=== PATIENT | female | born 1940 | race Caucasian/White ===

== ENCOUNTER 2018-08-16 01:01 | Emergency (ER) | payer MEDICARE, BC ==
[2018-08-16] MEDS ORDERED: SODIUM CHLORIDE 0.9% 500 ML 500 ML IV STA (01:33)
--- NOTE | 2018-08-16 01:48 | ED ---
General Adult HPI - General Chief complaint: Altered Mental Status Stated complaint: Mental Health Source: patient, EMS, RN notes reviewed Mode of arrival: EMS Limitations: no limitations - History of Present Illness Initial comments: 78-year-old female with a past medical history of dementia presents to the emergency department by EMS from [facility]. According to EMS [facility] staff stated patient appeared more "feisty" than normal. Patient at her baseline mentality with history of dementia. Patient is on Seroquel and was given her medication prior to arrival. Patient does state that she lost her temper but the [facility] but does not remember what this was about. Patient has no other complaints at this time including shortness of breath, chest pain, abdominal pain, nausea or vomiting, headache, or visual changes. - Related Data Previous Rx's Medication Instructions Recorded Sulfamethox-Tmp 800-160Mg [Bactrim 1 tab PO Q12HR 3 Days #6 tab 08/16/18 DS 800-160 mg] Allergies Allergy/AdvReac Type Severity Reaction Status Date / Time Unable to Assess Allergy Verified 08/16/18 01:30 Review of Systems ROS Statement: Those systems with pertinent positive or pertinent negative responses have been documented in the HPI. ROS Other: All systems not noted in ROS Statement are negative. Past Medical History Additional Past Medical History / Comment(s): dementia History of Any Multi-Drug Resistant Organisms: None Reported Past Surgical History: Unable to Obtain Past Psychological History: No Psychological Hx Reported Smoking Status: Never smoker Past Alcohol Use History: None Reported Past Drug Use History: None Reported General Exam Limitations: no limitations General appearance: alert, in no apparent distress Head exam: Present: atraumatic, normocephalic, normal inspection Eye exam: Present: normal appearance, PERRL, EOMI. Absent: scleral icterus, conjunctival injection, periorbital swelling ENT exam: Present: normal exam, mucous membranes moist Neck exam: Present: normal inspection, full ROM. Absent: tenderness, meningismus, lymphadenopathy Respiratory exam: Present: normal lung sounds bilaterally. Absent: respiratory distress, wheezes, rales, rhonchi, stridor Cardiovascular Exam: Present: regular rate, normal rhythm, normal heart sounds. Absent: systolic murmur, diastolic murmur, rubs, gallop, clicks GI/Abdominal exam: Present: soft, normal bowel sounds. Absent: distended, tenderness, guarding, rebound, rigid Neurological exam: Present: alert, CN II-XII intact. Absent: oriented X3 ( oriented to person) Psychiatric exam: Present: normal affect, normal mood Course Vital Signs 08/16/18 01:26 Temperature 97.4 F L Pulse Rate 79 Respiratory 18 Rate Blood Pressure 150/66 O2 Sat by Pulse 98 Oximetry Medical Decision Making - Medical Decision Making 78-year-old female with a past medical history of dementia presents to the emergency department, appeared more "feisty" than normal. CBC and CMP unremarkable. Urine does show evidence of infection with large leukocte esterase and 21 white cells. Urine culture. Patient put on Bactrim. Patient afebrile, well-appearing on discharge. Will be discharged back to [facility]. - Lab Data Result diagrams: 08/16/18 02:30 08/16/18 02:30 Lab Results 08/16/18 08/16/18 08/16/18 Range/Units 02:30 02:30 02:30 WBC 7.1 (3.8-10.6) k/uL RBC 4.28 (3.80-5.40) m/uL Hgb 12.5 (11.4-16.0) gm/dL Hct 38.8 (34.0-46.0) % MCV 90.6 (80.0-100.0) fL MCH 29.3 (25.0-35.0) pg MCHC 32.3 (31.0-37.0) g/dL RDW 12.6 (11.5-15.5) % Plt Count 278 (150-450) k/uL Neutrophils % 57 % Lymphocytes % 30 % Monocytes % 9 % Eosinophils % 2 % Basophils % 0 % Neutrophils # 4.0 (1.3-7.7) k/uL Lymphocytes # 2.1 (1.0-4.8) k/uL Monocytes # 0.6 (0-1.0) k/uL Eosinophils # 0.1 (0-0.7) k/uL Basophils # 0.0 (0-0.2) k/uL Sodium 140 (137-145) mmol/L Potassium 4.5 (3.5-5.1) mmol/L Chloride 106 (98-107) mmol/L Carbon Dioxide 26 (22-30) mmol/L Anion Gap 8 mmol/L BUN 25 H (7-17) mg/dL Creatinine 1.08 H (0.52-1.04) mg/dL Est GFR (CKD-EPI)AfAm 56 (>60 ml/min/1.73 sqM) Est GFR (CKD-EPI)NonAf 49 (>60 ml/min/1.73 sqM) Glucose 108 H (74-99) mg/dL Calcium 10.0 (8.4-10.2) mg/dL Total Bilirubin 0.3 (0.2-1.3) mg/dL AST 21 (14-36) U/L ALT 28 (9-52) U/L Alkaline Phosphatase 74 (38-126) U/L Total Protein 7.2 (6.3-8.2) g/dL Albumin 4.3 (3.5-5.0) g/dL Urine Color Yellow Urine Appearance Cloudy H (Clear) Urine pH 5.0 (5.0-8.0) Ur Specific [place] 1.018 (1.001-1.035) Urine Protein Negative (Negative) Urine Glucose (UA) Negative (Negative) Urine Ketones Negative (Negative) Urine Blood Small H (Negative) Urine Nitrite Negative (Negative) Urine Bilirubin Negative (Negative) Urine Urobilinogen <2.0 (<2.0) mg/dL Ur Leukocyte Esterase Large H (Negative) Urine RBC 5 (0-5) /hpf Urine WBC 21 H (0-5) /hpf Ur Squamous Epith Cells 1 (0-4) /hpf Urine Bacteria Rare H (None) /hpf Hyaline Casts 1 (0-2) /lpf Urine Mucus Rare H (None) /hpf Disposition Clinical Impression: Urinary tract infection Disposition: HOME SELF-CARE Condition: Good Instructions: Urinary Tract Infection in Women (ED) Additional Instructions: Please give antibiotic as directed. Please follow-up with primary care in 1-2 days. Prescriptions: Sulfamethox-Tmp 800-160Mg [Bactrim DS 800-160 mg] 1 tab PO Q12HR 3 Days #6 tab Is patient prescribed a controlled substance at d/c from ED?: No Referrals: Liana Young MD [STAFF PHYSICIAN] - 1-2 days Time of Disposition: 03:38
[2018-08-16 02:53] LABS: Basophils % (A) 0 %; Eosinophils # (A) 0.1 k/uL (0-0.7); Eosinophils % (A) 2 %; HCT 38.8 % (34.0-46.0); HGB 12.5 gm/dL (11.4-16.0); Lymphocytes # (A) 2.1 k/uL (1.0-4.8); Lymphocytes % (A) 30 %; MCH 29.3 pg (25.0-35.0); MCHC 32.3 g/dL (31.0-37.0); MCV 90.6 fL (80.0-100.0); Mean Platelet Volume 6.8; Monocytes # (A) 0.6 k/uL (0-1.0); Monocytes % (A) 9 %; Neutrophils % (A) 57 %; Platelet Count 278 k/uL (150-450); RBC 4.28 m/uL (3.80-5.40); RDW 12.6 % (11.5-15.5); WBC 7.1 k/uL (3.8-10.6)
[2018-08-16 03:04] LABS: Appearance,Urine Cloudy (Clear); Bacteria,Urine Rare /hpf; Bilirubin,Urine Negative (Negative); Blood,Urine Small (Negative); Color,Urine Yellow; Glucose,Urine (UA) Negative (Negative); Hyaline Casts,Urine 1 /lpf (0-2); Ketones,Urine Negative (Negative); Leukocyte Esterase,Urine Large (Negative); Mucus,Urine Rare /hpf; Nitrite,Urine Negative (Negative); Protein,Urine Negative (Negative); RBC,Urine 5 /hpf (0-5); Specific Gravity,Urine 1.018 (1.001-1.035); Squamous Epithelial Cell,Urine 1 /hpf (0-4); Urobilinogen,Urine <2.0 mg/dL (<2.0); WBC,Urine 21 /hpf (0-5)
[2018-08-16 03:05] LABS: Albumin 4.3 g/dL (3.5-5.0); Potassium 4.5 mmol/L (3.5-5.1); Total Bilirubin 0.3 mg/dL (0.2-1.3); Total Protein 7.2 g/dL (6.3-8.2)
[2018-08-16] MEDS ORDERED: LORazepam 1 MG TAB PO STA (03:33)
[2018-08-16] MEDS ORDERED: SULFAMETHOX-TMP 800-160MG 1 EACH TAB PO STA (03:36)
[2018-08-16 06:51] VITALS: BP 164/78; PULSE 56; RESP 16; TEMP 98.7
== END 2018-08-16 06:00 | disposition home or self-care (01) ==
LOC: EC 01:01
DX: N39.0 Urinary tract infection, site not specified (principal); F03.90 Unspecified dementia, unspecified severity, without behavioral disturbance, psychotic disturbance, mood disturbance, and anxiety
CPT/HCPCS: 36415; 80053; 81001; 85025; 87086; 99285

== ENCOUNTER 2018-10-02 18:36 | Observation (INO) | payer MEDICARE, BC ==
[2018-10-02 18:42] LABS: Glucose,Whole Blood 92 mg/dL (75-99)
--- NOTE | 2018-10-02 19:04 | ED ---
General Adult HPI - General Chief complaint: Syncope Stated complaint: syncope Time Seen by Provider: 10/02/18 18:46 Source: patient, EMS, RN notes reviewed Mode of arrival: EMS Limitations: altered mental status - History of Present Illness Initial comments: patient is a pleasantly demented 78-year-old female presenting to the emergency department with reported syncopal episode. Patient does not recall the episode. Patient has dementia and is a poor historian. Patient states she doesn't feel well and admits to feeling nervous. Patient denies any specific pain. No headache. No chest pain or weakness. - Related Data Previous Rx's Medication Instructions Recorded Sulfamethox-Tmp 800-160Mg [Bactrim 1 tab PO Q12HR 3 Days #6 tab 08/16/18 DS 800-160 mg] Allergies Allergy/AdvReac Type Severity Reaction Status Date / Time Unable to Assess Allergy Verified 08/16/18 01:30 Review of Systems ROS Statement: Those systems with pertinent positive or pertinent negative responses have been documented in the HPI. ROS Other: All systems not noted in ROS Statement are negative. Constitutional: Denies: fever Eyes: Denies: eye pain ENT: Denies: ear pain Respiratory: Reports: dyspnea Cardiovascular: Denies: chest pain Endocrine: Denies: fatigue Gastrointestinal: Denies: abdominal pain Genitourinary: Denies: dysuria Musculoskeletal: Denies: back pain Skin: Denies: rash Neurological: Denies: headache Psychiatric: Reports: anxiety Past Medical History Additional Past Medical History / Comment(s): dementia History of Any Multi-Drug Resistant Organisms: None Reported Past Surgical History: Unable to Obtain Past Psychological History: No Psychological Hx Reported Smoking Status: Never smoker Past Alcohol Use History: None Reported Past Drug Use History: None Reported General Exam Limitations: altered mental status General appearance: alert, anxious Head exam: Present: atraumatic, normocephalic Eye exam: Present: normal appearance, PERRL, EOMI ENT exam: Present: normal oropharynx Neck exam: Present: normal inspection. Absent: tenderness Respiratory exam: Present: normal lung sounds bilaterally Cardiovascular Exam: Present: regular rate, normal rhythm GI/Abdominal exam: Present: soft. Absent: tenderness Extremities exam: Present: normal inspection, full ROM. Absent: tenderness Neurological exam: Present: alert, altered. Absent: motor sensory deficit Expanded Neurological exam: Present: protecting the airway Patient oriented to: Present: person. Absent: place, time Cranial nerves: EOM's Intact: Normal Motor strength exam: RUE: 5, LUE: 5, RLE: 5, LLE: 5 Eye Response: (4) open spontaneously Motor Response: (6) obeys commands Verbal Response: (4) confused conversation Psychiatric exam: Present: normal affect, normal mood Skin exam: Present: normal color Course Vital Signs 10/02/18 10/02/18 18:39 18:50 Temperature 97.7 F Pulse Rate 85 80 Respiratory 24 20 Rate Blood Pressure 180/76 180/76 O2 Sat by Pulse 100 100 Oximetry EKG Findings - EKG Comments: EKG Findings:: Normal sinus rhythm at 68. ME 172. QRS 80. QT 414. QTC 440. Normal axis. Normal QRS. No acute ST change. Medical Decision Making - Medical Decision Making Patient reevaluated and resting comfortably in bed. Patient does have some nausea. Ham Rolling Machine Operator is present from care facility. She states that patient is her normal mentation. She also does admit that patient had what appeared to be a syncopal episode earlier. Ham Rolling Machine Operator updated on results and plan. Case was discussed in detail with Dr. Rogel, who will admit covering for Dr. leroy. He does request cardiology consult as well as carotid Doppler and echo. - Lab Data Result diagrams: 10/02/18 18:45 10/02/18 18:45 Lab Results 10/02/18 10/02/18 10/02/18 Range/Units 18:40 18:45 18:45 WBC 6.8 (3.8-10.6) k/uL RBC 4.60 (3.80-5.40) m/uL Hgb 13.5 (11.4-16.0) gm/dL Hct 40.7 (34.0-46.0) % MCV 88.5 (80.0-100.0) fL MCH 29.3 (25.0-35.0) pg MCHC 33.1 (31.0-37.0) g/dL RDW 12.4 (11.5-15.5) % Plt Count 267 (150-450) k/uL Neutrophils % 56 % Lymphocytes % 29 % Monocytes % 9 % Eosinophils % 2 % Basophils % 0 % Neutrophils # 3.8 (1.3-7.7) k/uL Lymphocytes # 2.0 (1.0-4.8) k/uL Monocytes # 0.6 (0-1.0) k/uL Eosinophils # 0.1 (0-0.7) k/uL Basophils # 0.0 (0-0.2) k/uL PT (9.0-12.0) sec INR (<1.2) APTT (22.0-30.0) sec D-Dimer (<0.60) mg/L FEU Sodium 140 (137-145) mmol/L Potassium 4.2 (3.5-5.1) mmol/L Chloride 106 (98-107) mmol/L Carbon Dioxide 24 (22-30) mmol/L Anion Gap 10 mmol/L BUN 19 H (7-17) mg/dL Creatinine 1.06 H (0.52-1.04) mg/dL Est GFR (CKD-EPI)AfAm 58 (>60 ml/min/1.73 sqM) Est GFR (CKD-EPI)NonAf 50 (>60 ml/min/1.73 sqM) Glucose 122 H (74-99) mg/dL POC Glucose (mg/dL) 92 (75-99) mg/dL POC Glu Windows Support Engineer ID Shasha Gallegos Calcium 10.4 H (8.4-10.2) mg/dL Magnesium 1.8 (1.6-2.3) mg/dL Total Bilirubin 0.5 (0.2-1.3) mg/dL AST 20 (14-36) U/L ALT 30 (9-52) U/L Alkaline Phosphatase 75 (38-126) U/L Troponin I (0.000-0.034) ng/mL Total Protein 7.4 (6.3-8.2) g/dL Albumin 4.3 (3.5-5.0) g/dL 10/02/18 10/02/18 Range/Units 18:45 18:45 WBC (3.8-10.6) k/uL RBC (3.80-5.40) m/uL Hgb (11.4-16.0) gm/dL Hct (34.0-46.0) % MCV (80.0-100.0) fL MCH (25.0-35.0) pg MCHC (31.0-37.0) g/dL RDW (11.5-15.5) % Plt Count (150-450) k/uL Neutrophils % % Lymphocytes % % Monocytes % % Eosinophils % % Basophils % % Neutrophils # (1.3-7.7) k/uL Lymphocytes # (1.0-4.8) k/uL Monocytes # (0-1.0) k/uL Eosinophils # (0-0.7) k/uL Basophils # (0-0.2) k/uL PT 10.0 (9.0-12.0) sec INR 0.9 (<1.2) APTT 25.7 (22.0-30.0) sec D-Dimer 0.50 (<0.60) mg/L FEU Sodium (137-145) mmol/L Potassium (3.5-5.1) mmol/L Chloride (98-107) mmol/L Carbon Dioxide (22-30) mmol/L Anion Gap mmol/L BUN (7-17) mg/dL Creatinine (0.52-1.04) mg/dL Est GFR (CKD-EPI)AfAm (>60 ml/min/1.73 sqM) Est GFR (CKD-EPI)NonAf (>60 ml/min/1.73 sqM) Glucose (74-99) mg/dL POC Glucose (mg/dL) (75-99) mg/dL POC Glu Windows Support Engineer ID Calcium (8.4-10.2) mg/dL Magnesium (1.6-2.3) mg/dL Total Bilirubin (0.2-1.3) mg/dL AST (14-36) U/L ALT (9-52) U/L Alkaline Phosphatase (38-126) U/L Troponin I <0.012 (0.000-0.034) ng/mL Total Protein (6.3-8.2) g/dL Albumin (3.5-5.0) g/dL - Radiology Data Radiology results: report reviewed (Computed tomography scan of the brain shows atrophy and chronic small vessel ischemia, no acute intercranial abnormality. Computed tomography scan the cervical spine shows spondylitic changes, no fracture.), image reviewed (Chest x-ray does not reveal acute abnormality) Disposition Clinical Impression: Syncope Disposition: ADMITTED IP TO THIS HOSP Is patient prescribed a controlled substance at d/c from ED?: No Referrals: Ynes Bledsoe MD [Primary Care Provider] - 1-2 days Decision Time: 20:13
[2018-10-02 19:12] LABS: Basophils % (A) 0 %; Eosinophils # (A) 0.1 k/uL (0-0.7); Eosinophils % (A) 2 %; HCT 40.7 % (34.0-46.0); HGB 13.5 gm/dL (11.4-16.0); Lymphocytes % (A) 29 %; MCH 29.3 pg (25.0-35.0); MCHC 33.1 g/dL (31.0-37.0); MCV 88.5 fL (80.0-100.0); Mean Platelet Volume 7.5; Monocytes # (A) 0.6 k/uL (0-1.0); Monocytes % (A) 9 %; Neutrophils # (A) 3.8 k/uL (1.3-7.7); Neutrophils % (A) 56 %; Platelet Count 267 k/uL (150-450); RDW 12.4 % (11.5-15.5); WBC 6.8 k/uL (3.8-10.6)
[2018-10-02 19:27] LABS: Albumin 4.3 g/dL (3.5-5.0); Calcium 10.4 mg/dL (8.4-10.2); Magnesium 1.8 mg/dL (1.6-2.3); Potassium 4.2 mmol/L (3.5-5.1); Total Bilirubin 0.5 mg/dL (0.2-1.3); Total Protein 7.4 g/dL (6.3-8.2)
[2018-10-02 19:31] LABS: D-Dimer 0.5 mg/L FEU (<0.60); INR 0.9 (<1.2); Partial Thromboplastin Time 25.7 sec (22.0-30.0)
[2018-10-02] MEDS ORDERED: ONDANSETRON 4 MG/2 ML VIAL IVP STA (19:34)
--- NOTE | 2018-10-02 19:51 | CT ---
EXAMINATION TYPE: CT brain lele suarez DATE OF EXAM: 10/02/2018 COMPARISON: HISTORY: AMS, syncope CT DLP: 1317.7 mGycm Automated exposure control for dose reduction was used. TECHNIQUE: CT scan of the head and cervical spine are performed without contrast. FINDINGS: There is some cerebral cortical atrophy. There is patchy hypodensity in the periventricul ar white matter. There is no mass effect nor midline shift. There is no sign of intracranial hemorrha ge. The calvarium is intact. There is degenerative disc space narrowing throughout the cervical spine with more severe spur format ion in the lower cervical spine. The posterior elements are intact. There is no evidence of cervical spine fracture. Vertebra have fairly normal alignment. The skull base is intact. IMPRESSION: Cerebral atrophy and chronic small vessel ischemia. No acute intracranial abnormality. 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 No fracture.
--- NOTE | 2018-10-02 20:12 | XR ---
EXAMINATION TYPE: XR chest 2V DATE OF EXAM: 10/02/2018 COMPARISON: NONE HISTORY: Altered mental status TECHNIQUE: Frontal and lateral views of the chest are obtained. FINDINGS: There is no heart failure nor confluent pneumonic infiltrate. Costophrenic angles are siobhan r. Thoracic aorta is atheromatous. There are chest leads. Bony thorax is intact. IMPRESSION: No active cardiopulmonary disease. Atheromatous aorta. Normal heart.
[2018-10-02] MEDS ORDERED: ONDANSETRON 4 MG/2 ML VIAL IVP PRN (20:13)
[2018-10-02] MEDS ORDERED: NALOXONE 0.4 MG/ML 1 ML VIAL IV PRN (20:13)
[2018-10-03 01:06] VITALS: BMI 22.1
[2018-10-03] MEDS: SODIUM CHLORIDE 0.9% 1,000 ML IV SCH (04:05)
[2018-10-03] MEDS ORDERED: ACETAMINOPHEN TAB 325 MG TAB PO PRN (08:10)
[2018-10-03] MEDS ORDERED: busPIRone HCl 10 MG TAB PO PRN (08:10)
[2018-10-03] MEDS: QUEtiapine 25 MG TAB PO SCH ×2 (08:44→22:39)
--- NOTE | 2018-10-03 09:05 | US ---
EXAMINATION TYPE: US carotid duplex BILAT DATE OF EXAM: 10/03/2018 COMPARISON: NONE CLINICAL HISTORY: syncope. EXAM MEASUREMENTS: RIGHT: Peak Systolic Velocity (PSV) cm/sec ----- Right CCA: 66.1 ----- Right ICA: 104.8 ----- Right ECA: 90.3 ICA/CCA ratio: 1.6 RIGHT: End Diastole cm/sec ----- Right CCA: 10.8 ----- Right ICA: 24.1 ----- Right ECA: 0.0 LEFT: Peak Systolic Velocity (PSV) cm/sec ----- Left CCA: 62.0 ----- Left ICA: 69.4 ----- Left ECA: 109.5 ICA/CCA ratio: 1.1 LEFT: End Diastole cm/sec ----- Left CCA: 9.1 ----- Left ICA: 18.8 ----- Left ECA: 0.0 VERTEBRALS (direction of flow): Right Vertebral: Antegrade Left Vertebral: Antegrade Rhythm: Arrhythmia Mild plaque, no significant velocity elevations. IMPRESSION: 1. Mild atherosclerotic plaque with no significant hemodynamic stenosis. 2. Cardiac dysrhythmia. Criteria for Assigning % of Stenosis / Diameter reduction (Estimation based on the indirect measurements of the internal carotid artery velocities (ICA PSV). 1. Normal (no stenosis)=ICA PSV < 125 cm/s: ratio < 2.0: ICA EDV<40 cm/s. 2. Less than 50% stenosis=ICA PSV < 125 cm/s: ratio < 2.0: ICA EDV<40 cm/s. 3. 50 to 69% stenosis=ICA PSV of 125 to 230 cm/s: ration 2.0 ? 4.0: ICA EDV 40-100 cm/s. 4. Greater than 70% stenosis to near occlusion= ICA PSV > 230 cm/s: ratio > 4.0: ICA EDV > 100 cm/s. 5. Near occlusion= ICA PSV velocities may be low or undetectable: variable ratio and ICA EDV. 6. Total occlusion=unable to detect flow.
[2018-10-03 09:18] LABS: Basophils % (A) 0 %; Eosinophils # (A) 0.1 k/uL (0-0.7); Eosinophils % (A) 1 %; HCT 41.7 % (34.0-46.0); HGB 13.2 gm/dL (11.4-16.0); Lymphocytes # (A) 1.6 k/uL (1.0-4.8); Lymphocytes % (A) 18 %; MCH 28.7 pg (25.0-35.0); MCHC 31.6 g/dL (31.0-37.0); MCV 90.7 fL (80.0-100.0); Mean Platelet Volume 7.2; Monocytes # (A) 0.7 k/uL (0-1.0); Monocytes % (A) 8 %; Neutrophils # (A) 6.2 k/uL (1.3-7.7); Neutrophils % (A) 70 %; Platelet Count 287 k/uL (150-450); RDW 12.6 % (11.5-15.5); WBC 8.9 k/uL (3.8-10.6)
[2018-10-03 09:23] LABS: Creatine Kinase MB 15.2 ng/mL (0.0-2.4); Troponin I 0.022 ng/mL (0.000-0.034)
--- NOTE | 2018-10-03 09:34 | P.HPIM ---
History of Present Illness H&P Date: 10/03/18 This is an 78-year-old female patient of Dr. Bledsoe. Patient currently resides at [facility]. Patient does have advanced dementia. According to ER records patient presented with reported syncopal episode. Patient is unable to recall event. Patient does have a past medical history of dementia with baseline of oriented 1. Patient denies any specific complaints. Chest x- ray completed in ER showing no active cardiopulmonary disease. Roni Pinto ordered. Normal heart. CT of head completed showing cerebral atrophy and chronic small vessel ischemia. No acute intracranial abnormality. Multilevel spondylitic change in the cervical spine no fracture. EKG completed showing normal sinus rhythm with 68. Repeat labs have been ordered. Cardiology has been consulted. 2-D echo and carotid Doppler ordered. Urinary analysis will be ordered. At this time patient expressed that she is very eager to return home. Patient's DPOA and legal.guardian on her way. Patient denies chest pain or shortness of breath. Patient denies nausea vomiting or diarrhea. Patient denies any urinary burning or frequency. Review of Systems please refer to HPI otherwise unremarkable Past Medical History Past Medical History: Dementia, Syncope Additional Past Medical History / Comment(s): dementia; A\O X1 (SELF). History of Any Multi-Drug Resistant Organisms: None Reported Past Surgical History: Unable to Obtain Past Psychological History: No Psychological Hx Reported Smoking Status: Never smoker Past Alcohol Use History: None Reported Past Drug Use History: None Reported Medications and Allergies Home Medications Medication Instructions Recorded Confirmed Type Acetaminophen Tab [Tylenol Tab] 650 mg PO Q6H PRN 10/02/18 10/02/18 History Cholecalciferol (Vitamin D3) 2,000 unit PO DAILY@0810/02/18 10/02/18 History [Vitamin D3] Coconut Oil 1000mg 1,000 mg PO DAILY@1700 10/02/18 10/02/18 History Escitalopram [Lexapro] 10 mg PO DAILY@79910/02/18 10/02/18 History Ferrous Sulfate [Feosol] 325 mg PO DAILY@79910/02/18 10/02/18 History Losartan [Cozaar] 50 mg PO DAILY@79910/02/18 10/02/18 History Melatonin 5 mg PO HS@199910/02/18 10/02/18 History QUEtiapine FUMARATE [SEROquel XR] 50 mg PO HS@2000 10/02/18 10/02/18 History busPIRone HCl [Buspar] 10 mg PO Q8H PRN 10/02/18 10/02/18 History Allergies Allergy/AdvReac Type Severity Reaction Status Date / Time No Known Allergies Allergy Unverified 10/02/18 20:48 Physical Exam Vitals: Vital Signs Temp Pulse Pulse Resp BP BP Pulse Ox 10/03/18 07:00 98.3 F 62 18 156/67 98 10/03/18 03:06 17 10/03/18 01:00 17 10/03/18 00:05 98.3 F 75 18 154/53 97 10/02/18 21:30 62 16 112/86 100 10/02/18 21:00 73 16 149/86 100 10/02/18 20:30 73 16 133/110 100 10/02/18 20:00 16 133/110 100 10/02/18 19:30 16 150/119 100 10/02/18 19:00 74 16 180/76 100 10/02/18 18:50 80 20 180/76 100 10/02/18 18:41 77 100 10/02/18 18:39 97.7 F 85 24 180/76 100 Intake and Output 10/02/18 10/03/18 10/03/18 22:59 06:59 14:59 Other: Voiding Method Toilet # Voids 1 Weight 58.5 kg Head normocephalic Neck supple Lungs clear to auscultation bilaterally no wheezing or crackles Heart regular rate and rhythm S1-S2, no rub or gallop Abdomen is soft nontender nondistended positive bowel sounds no hepatosplenomegaly Extremities no edema Neuro alert and orientated to 1 Results CBC & Chem 7: 10/03/18 08:56 10/02/18 18:45 Labs: Abnormal Lab Results - Last 24 Hours (Table) 10/02/18 10/03/18 10/03/18 Range/Units 18:45 01:37 07:38 BUN 19 H (7-17) mg/dL Creatinine 1.06 H (0.52-1.04) mg/dL Glucose 122 H (74-99) mg/dL Calcium 10.4 H (8.4-10.2) mg/dL Total Creatine Kinase 865 H (30-135) U/L CK-MB (CK-2) 8.7 H 15.2 H (0.0-2.4) ng/mL Thrombosis Risk Factor Assmnt - Choose All That Apply Any of the Below Risk Factors Present?: Yes Each Risk Factor Represents 3 Points: Age 75 years or older Other congenital or acquired thrombophilia - If yes, enter type in comment: No Thrombosis Risk Factor Assessment Total Risk Factor Score: 3 Thrombosis Risk Factor Assessment Level: Moderate Risk Assessment and Plan Assessment: 1. Syncopal episode. Chest x-ray completed showing no active cardiopulmonary disease or arteriovenous been ordered. Normal heart. Head and cervical spine CT completed showing cerebral atrophy and chronic small vessel ischemia. No acute intracranial abnormality. Multilevel spondylitic changes in the cervical spine no fracture. EKG completed showing normal sinus rhythm normal EKG. Cardiology services have been consulted. 2-D echo and carotid Doppler ordered. Will also order urinary analysis to rule out UTI 2. Dementia. Patient's baseline is alert and oriented 1. Patient currently resides at a [facility] assisted living. Patient does have legal DPOA which is her daughter Carotid Doppler and 2-D echo ordered. Cardiology consult placed. Urinary analysis ordered Time with Patient: Greater than 30 (Greater than 60% of the total time spent in counseling and coordination of care. I performed an examination of the patient and discussed their management with the Nurse Practitioner. I have reviewed the Nurse Practitioner's notes and agree with the documented findings and plan of care)
[2018-10-03 09:35] LABS: Albumin 4.3 g/dL (3.5-5.0); Calcium 10.2 mg/dL (8.4-10.2); Potassium 3.9 mmol/L (3.5-5.1); Total Bilirubin 0.7 mg/dL (0.2-1.3); Total Protein 7.5 g/dL (6.3-8.2)
[2018-10-03 09:57] LABS: Appearance,Urine Clear (Clear); Bilirubin,Urine Negative (Negative); Blood,Urine Small (Negative); Color,Urine Yellow; Glucose,Urine (UA) Negative (Negative); Ketones,Urine 1+ (Negative); Leukocyte Esterase,Urine Large (Negative); Mucus,Urine Occasional /hpf; Nitrite,Urine Negative (Negative); PH, Urine 6.5 (5.0-8.0); Protein,Urine Trace (Negative); RBC,Urine 12 /hpf (0-5); Squamous Epithelial Cell,Urine 1 /hpf (0-4); WBC,Urine 13 /hpf (0-5)
--- NOTE | 2018-10-03 10:17 | P.CRDCN ---
History of Present Illness History of present illness: This is an 78-year-old female past medical history significant for hypertension and dementia. She is confused at baseline and unable to provide information regarding the circumstances of her admission to the hospital. Information is obtained from the nursing staff and the medical record. Apparently she was brought in by EMS due to be found in her assisted living apartment by staff on the ground at home and unable to get up or verbalize what happened. She is seen and examined sitting up in bed in no acute distress. She denies any symptoms of chest pain, shortness of breath, dizziness or palpitations. She does state that she thinks she may have fallen but doesn't recall the events leading up to the fall or thereafter. She doesn't know if she hit her head or if she had positive LOC. EKG reveals sinus mechanism with no acute ST or T wave abnormalities noted. Heart rate is 68. Telemetry tracings have been unremarkable and no evidence of bradycardia or arrhythmia. Chest x-ray is negative for an acute cardiopulmonary process. With evidence of atheromatous aorta. CT brain and C-spine reveals cerebral atrophy and chronic small vessel ischemia with no acute intracranial abnormality. No fracture noted cervical spine. Bilateral carotid duplex reveals mild atherosclerotic plaque with no significant stenosis. Laboratory data reviewed, WBC 8.9, hemoglobin 13.2, platelets 287, d-dimer 0.5, sodium 141, potassium 3.9, creatinine 1.1, magnesium 1.8, cardiac enzymes negative 3. Current cardiac medications include losartan 50 mg daily. At the time of my exam: CONSTITUTIONAL: Denies fever. Denies chills. EYES: Denies blurred vision. Denies vision changes. Denies eye pain. EARS, NOSE, MOUTH & THROAT: Denies headache. Denies sore throat. Denies ear pain. CARDIOVASCULAR: Denies chest pain. Denies shortness of breath. Denies orthopnea. Denies PND. Denies palpitations. RESPIRATORY: Denies cough. GASTROINTESTINAL: Denies abdominal pain. Denies diarrhea. Denies constipation. Denies nausea. Denies vomiting. MUSCULOSKELETAL: Denies myalgias. INTEGUMENTARY: Denies pruitis. Denies rash. NEUROLOGIC: Denies numbness. Denies tingling. Denies weakness. PSYCHIATRIC: Denies anxiety. Denies depression. ENDOCRINE: Denies fatigue. Denies weight change. Denies polydipsia. Denies polyurina. GENITOURINARY: Denies burning, hematuria or urgency with micturation. HEMATOLOGIC: Denies history of anemia. Denies bleeding. Blood pressure 156/67 heart rate 62 afebrile maintaining oxygen saturation on room air GENERAL: This is a 78-year-old female in no apparent distress at the time of my examination. HEENT: Head is atraumatic, normocephalic. Pupils are equal, round. Sclerae anicteric. Conjunctivae are clear. Mucous membranes of the mouth are moist. Neck is supple. There is no jugular venous distention. No carotid bruit is heard. LUNGS: Clear to auscultation no wheezes, rales or rhonchi. No chest wall tenderness is noted on palpation or with deep breathing. HEART: Regular rate and rhythm without murmurs, rubs or gallops. S1 and S2 heard. ABDOMEN: Soft, nontender. Bowel sounds are heard. No organomegaly noted. EXTREMITIES: No evidence of peripheral edema and no calf tenderness noted. VASCULAR: Radial and dorsalis pedis pulses palpated, no evidence of clubbing. NEUROLOGIC: Patient is awake, alert to self. ASSESSMENT Possible fall with unknown LOC Hypertension Dementia PLAN An acute coronary event has been ruled out. Echocardiogram has been obtained and will be reviewed. No evidence of an acute arrhythmia or bradycardia. Increase activity and assess for dizziness, chest pain or arrhythmia. No further cardiac work-up. Thank you kindly for this consultation. Nurse Practitioner note has been reviewed, I agree with a documented findings and plan of care. Patient was seen and examined. Past Medical History Past Medical History: Dementia, Syncope Additional Past Medical History / Comment(s): dementia; A\O X1 (SELF). History of Any Multi-Drug Resistant Organisms: None Reported Past Surgical History: Unable to Obtain Past Psychological History: No Psychological Hx Reported Smoking Status: Never smoker Past Alcohol Use History: None Reported Past Drug Use History: None Reported Medications and Allergies Home Medications Medication Instructions Recorded Confirmed Type Acetaminophen Tab [Tylenol Tab] 650 mg PO Q6H PRN 10/02/18 10/02/18 History Cholecalciferol (Vitamin D3) 2,000 unit PO DAILY@0800 10/02/18 10/02/18 History [Vitamin D3] Coconut Oil 1000mg 1,000 mg PO DAILY@1700 10/02/18 10/02/18 History Escitalopram [Lexapro] 10 mg PO DAILY@0810/02/18 10/02/18 History Ferrous Sulfate [Feosol] 325 mg PO DAILY@79910/02/18 10/02/18 History Losartan [Cozaar] 50 mg PO DAILY@79910/02/18 10/02/18 History Melatonin 5 mg PO HS@199910/02/18 10/02/18 History QUEtiapine FUMARATE [SEROquel XR] 50 mg PO HS@199910/02/18 10/02/18 History busPIRone HCl [Buspar] 10 mg PO Q8H PRN 10/02/18 10/02/18 History Allergies Allergy/AdvReac Type Severity Reaction Status Date / Time No Known Allergies Allergy Unverified 10/02/18 20:48 Physical Exam Vitals: Vital Signs Temp Pulse Pulse Resp BP BP Pulse Ox 10/03/18 07:00 98.3 F 62 18 156/67 98 10/03/18 03:06 17 10/03/18 01:00 17 10/03/18 00:05 98.3 F 75 18 154/53 97 10/02/18 21:30 62 16 112/86 100 10/02/18 21:00 73 16 149/86 100 10/02/18 20:30 73 16 133/110 100 10/02/18 20:00 16 133/110 100 10/02/18 19:30 16 150/119 100 10/02/18 19:00 74 16 180/76 100 10/02/18 18:50 80 20 180/76 100 10/02/18 18:41 77 100 10/02/18 18:39 97.7 F 85 24 180/76 100 Intake and Output 10/02/18 10/03/18 10/03/18 22:59 06:59 14:59 Other: Voiding Method Toilet # Voids 1 Weight 58.5 kg Results 10/03/18 08:56 10/03/18 08:56 Cardiac Enzymes 10/02/18 10/02/18 10/02/18 Range/Units 18:45 18:45 18:45 AST 20 (14-36) U/L CK-MB (CK-2) 1.7 (0.0-2.4) ng/mL Troponin I <0.012 (0.000-0.034) ng/mL 10/03/18 10/03/18 10/03/18 Range/Units 01:37 01:37 07:38 AST (14-36) U/L CK-MB (CK-2) 8.7 H 15.2 H (0.0-2.4) ng/mL Troponin I <0.012 0.022 (0.000-0.034) ng/mL 10/03/18 Range/Units 08:56 AST 39 H (14-36) U/L CK-MB (CK-2) (0.0-2.4) ng/mL Troponin I (0.000-0.034) ng/mL Coagulation 10/02/18 Range/Units 18:45 PT 10.0 (9.0-12.0) sec APTT 25.7 (22.0-30.0) sec CBC 10/02/18 10/03/18 Range/Units 18:45 08:56 WBC 6.8 8.9 (3.8-10.6) k/uL RBC 4.60 4.60 (3.80-5.40) m/uL Hgb 13.5 13.2 (11.4-16.0) gm/dL Hct 40.7 41.7 (34.0-46.0) % Plt Count 267 287 (150-450) k/uL Comprehensive Metabolic Panel 10/02/18 10/03/18 Range/Units 18:45 08:56 Sodium 140 141 (137-145) mmol/L Potassium 4.2 3.9 (3.5-5.1) mmol/L Chloride 106 108 H (98-107) mmol/L Carbon Dioxide 24 24 (22-30) mmol/L BUN 19 H 19 H (7-17) mg/dL Creatinine 1.06 H 1.10 H (0.52-1.04) mg/dL Glucose 122 H 106 H (74-99) mg/dL Calcium 10.4 H 10.2 (8.4-10.2) mg/dL AST 20 39 H (14-36) U/L ALT 30 32 (9-52) U/L Alkaline Phosphatase 75 74 (38-126) U/L Total Protein 7.4 7.5 (6.3-8.2) g/dL Albumin 4.3 4.3 (3.5-5.0) g/dL Current Medications Generic Name Dose Route Start Last Admin Trade Name Freq PRN Reason Stop Dose Admin Acetaminophen 650 mg 10/03/18 08:10 Tylenol Tab PO Q6H PRN Pain Buspirone HCl 10 mg 10/03/18 08:10 10/03/18 08:44 Buspar PO 10 mg Q8H PRN Administration Anxiety Cholecalciferol 2,000 unit 10/04/18 08:00 Vitamin D3 PO DAILY@0800 [facility] Escitalopram Oxalate 10 mg 10/04/18 08:00 Lexapro PO DAILY@0800 [facility] Ferrous Sulfate 325 mg 10/04/18 08:00 Feosol PO DAILY@0800 [facility] Sodium Chloride 1,000 mls @ 20 mls/hr 10/02/18 20:15 10/03/18 04:05 Saline 0.9% IV Not Given .Q24H [facility] Losartan Potassium 50 mg 10/04/18 08:00 Cozaar PO DAILY@0800 [facility] Melatonin 5 mg 10/03/18 20:00 Melatonin PO HS@2000 [facility] Naloxone HCl 0.2 mg 10/02/18 20:13 Narcan IV Q2M PRN Opioid Reversal Non-Formulary Medication 1,000 mg 10/03/18 17:00 Coconut Oil 1000mg PO DAILY@1700 [facility] Ondansetron HCl 4 mg 10/02/18 20:13 Zofran IVP Q8HR PRN Nausea And Vomiting Quetiapine Fumarate 25 mg 10/03/18 09:00 10/03/18 08:44 Seroquel PO 25 mg BID [facility] Administration Intake and Output 10/02/18 10/03/18 10/03/18 22:59 06:59 14:59 Other: Voiding Method Toilet # Voids 1 Weight 58.5 kg 10/03/18 08:56 10/03/18 08:56
[2018-10-03] MEDS ORDERED: LORazepam 2 MG/ML INJ IV PRN (16:08)
[2018-10-03] MEDS ORDERED: COCONUT OIL 1000 MG PO SCH (17:00)
--- NOTE | 2018-10-03 17:03 | ECHOF ---
Referral Reason:syncope MEASUREMENTS -------- HEIGHT: 162.6 cm WEIGHT: 58.1 kg BP: 154/53 RVIDd: 2.6 cm (< 3.3) IVSd: 0.9 cm (0.6 - 1.1) LVIDd: 3.9 cm (3.9 - 5.3) LVPWd: 0.9 cm (0.6 - 1.1) IVSs: 1.3 cm LVIDs: 2.4 cm LVPWs: 1.3 cm LAESV Index (A-L): 21.76 ml/m Ao Diam: 2.8 cm (2.0 - 3.7) AV Cusp: 1.7 cm (1.5 - 2.6) LA Diam: 3.1 cm (2.7 - 3.8) MV E Tyler: 0.89 m/s MV DecT: 260 ms MV A Tyler: 1.01 m/s MV E/A Ratio: 0.88 RAP: 5.00 mmHg RVSP: 36.96 mmHg MV EF SLOPE: 32.31 mm/s (70 - 150) MV EXCURSION: 1.72 cm (> 18.000) FINDINGS -------- Sinus rhythm. This was a technically good study. The left ventricular size is normal. Left ventricular wall thickness is normal. Left ventricular systolic function is hyperdynamic with an estimated EF of >70%. The right ventricle is normal in size and function. Normal LA size by volume 22+/-6 ml/m2. The right atrium is normal in size. Aortic valve is trileaflet and is mildly thickened. There is no evidence of aortic regurgitation. There is no evidence of aortic stenosis. The mitral valve leaflets are mildly thickened. Mild mitral annular calcification present. There is trace to mild mitral regurgitation. There is mildly calcified chordae. Mild tricuspid regurgitation present. There is borderline pulmonary hypertension. The right ventr icular systolic pressure, as measured by Doppler, is 36.96mmHg. Trace/mild (physiologic) pulmonic regurgitation. The aortic root size is normal. Normal inferior vena cava with normal inspiratory collapse consistent with estimated right atrial pre ssure of 5 mmHg. There is no pericardial effusion. CONCLUSIONS -------- 1. Sinus rhythm. 2. This was a technically good study. 3. The left ventricular size is normal. 4. Left ventricular wall thickness is normal. 5. Left ventricular systolic function is hyperdynamic with an estimated EF of >70%. 6. Normal LA size by volume 22+/-6 ml/m2. 7. Aortic valve is trileaflet and is mildly thickened. 8. The mitral valve leaflets are mildly thickened. 9. Mild mitral annular calcification present. 10. There is trace to mild mitral regurgitation. 11. There is mildly calcified chordae. 12. Mild tricuspid regurgitation present. 13. There is borderline pulmonary hypertension. 14. The right ventricular systolic pressure, as measured by Doppler, is 36.96mmHg. 15. Trace/mild (physiologic) pulmonic regurgitation. 16. The aortic root size is normal. 17. There is no pericardial effusion. MANAGEMENT RETAIL INTERN: Sam Lester RDCS
[2018-10-03] MEDS ORDERED: MELATONIN 5 MG TABLET PO SCH (20:00)
[2018-10-04] MEDS: SODIUM CHLORIDE 0.9% 1,000 ML IV SCH (07:11)
[2018-10-04] MEDS ORDERED: ESCITALOPRAM 10 MG TAB PO SCH (08:00)
[2018-10-04] MEDS ORDERED: LOSARTAN 50 MG TAB PO SCH (08:00)
[2018-10-04] MEDS ORDERED: FERROUS SULFATE 325 MG TAB PO SCH (08:00)
[2018-10-04] MEDS ORDERED: CHOLECALCIFEROL 1,000 UNIT TAB PO SCH (08:00)
[2018-10-04 08:44] VITALS: RESP 18
[2018-10-04 10:12] LABS: Basophils % (A) 1 %; Eosinophils # (A) 0.2 k/uL (0-0.7); Eosinophils % (A) 3 %; HCT 39.2 % (34.0-46.0); HGB 12.5 gm/dL (11.4-16.0); Lymphocytes # (A) 1.9 k/uL (1.0-4.8); Lymphocytes % (A) 33 %; MCH 29.4 pg (25.0-35.0); MCHC 31.9 g/dL (31.0-37.0); MCV 92.4 fL (80.0-100.0); Mean Platelet Volume 6.8; Monocytes # (A) 0.6 k/uL (0-1.0); Monocytes % (A) 11 %; Neutrophils % (A) 51 %; Platelet Count 263 k/uL (150-450); RBC 4.24 m/uL (3.80-5.40); RDW 12.6 % (11.5-15.5); WBC 5.9 k/uL (3.8-10.6)
[2018-10-04 10:13] LABS: Albumin 3.7 g/dL (3.5-5.0); Calcium 9.4 mg/dL (8.4-10.2); Potassium 4.4 mmol/L (3.5-5.1); Total Bilirubin 0.5 mg/dL (0.2-1.3); Total Protein 6.6 g/dL (6.3-8.2)
[2018-10-04] MEDS: QUEtiapine 25 MG TAB PO SCH (10:55)
[2018-10-04 12:13] VITALS: BP 132/69; PULSE 65; TEMP 97.9
--- NOTE | 2018-10-04 13:44 | P.DS ---
Providers Date of admission: 10/02/18 20:15 Expected date of discharge: 10/04/18 Attending physician: Danyel Rogel Consults: 10/02/18 20:14 Consult Physician Urgent Consulting Provider: Cheo Swain Consult Reason/Comments: syncope Do you want consulting provider notified?: Yes Primary care physician: Ynes Covarrubias Hospital Course: Discharge diagnosis 1. Syncopal episode. Chest x-ray completed showing no active cardiopulmonary disease or arteriovenous been ordered. Normal heart. Head and cervical spine CT completed showing cerebral atrophy and chronic small vessel ischemia. No acute intracranial abnormality. Multilevel spondylitic changes in the cervical spine no fracture. EKG completed showing normal sinus rhythm normal EKG. Cardiology services have been consulted. 2-D echo and carotid Doppler ordered. Will also order urinary analysis to rule out UTI 2. Dementia. Patient's baseline is alert and oriented 1. Patient currently resides at a [facility]. Patient does have legal DPOA which is her daughter 3. Urinary tract infection. Urine culture ordered. Patient to follow-up with primary care Dr. covarrubias for further follow-urine culture. Patient will be DC'd on Ceftin antibiotic carotid Doppler completed showing mild arthrosclerotic plaque with no significant hemodynamic stenosis cardiac dysrhythmia Echo completed showing EF greater than 70% She has been cleared for discharge from cardiology standpoint Hospital course This is an 78-year-old female patient of Dr. Covarrubias. Patient currently resides at [facility]. Patient does have advanced dementia. According to ER records patient presented with reported syncopal episode. Patient is unable to recall event. Patient does have a past medical history of dementia with baseline of oriented 1. Patient denies any specific complaints. Chest x- ray completed in ER showing no active cardiopulmonary disease. Normal heart. CT of head completed showing cerebral atrophy and chronic small vessel ischemia. No acute intracranial abnormality. Multilevel spondylitic change in the cervical spine no fracture. EKG completed showing normal sinus rhythm with 68. Repeat labs have been ordered. Cardiology has been consulted. 2-D echo and carotid Doppler ordered. Urinary analysis will be ordered. At this time patient expressed that she is very eager to return home. Patient's DPOA and legal.guardian on her way. Patient denies chest pain or shortness of breath. Patient denies nausea vomiting or diarrhea. Patient denies any urinary burning or frequency. On 10/04/2018 patient remains confused which is her baseline. Patient is very eager to go home. Patient positive for urinary tract infection. Urine culture has been ordered. Patient remains afebrile. White blood cell count within normal limits. 2-D echo and carotid Doppler completed. Patient has been cleared from cardiology services. Will DC patient on Ceftin. Patient to follow -up with Dr. Covarrubias in regards to urine culture results. Will repeat CMP in 3 days for slightly elevated creatinine and bun 1 with elevated AST. At this time patient denies chest pain or shortness of breath. Patient denies nausea vomiting or diarrhea. Patient denies any urinary burning or frequency I performed an examination of the patient and discussed their management with the Nurse Practitioner. I have reviewed the Nurse Practitioner's notes and agree with the documented findings and plan of care Patient Condition at Discharge: Stable Plan - Discharge Summary Discharge Rx Participant: Yes New Discharge Prescriptions: No Action busPIRone HCl [Buspar] 10 mg PO Q8H PRN PRN Reason: Anxiety Acetaminophen Tab [Tylenol Tab] 650 mg PO Q6H PRN PRN Reason: Pain Cholecalciferol (Vitamin D3) [Vitamin D3] 2,000 unit PO DAILY@0800 QUEtiapine FUMARATE [SEROquel XR] 50 mg PO HS@1999 Melatonin 5 mg PO HS@1999 Losartan [Cozaar] 50 mg PO DAILY@0800 Ferrous Sulfate [Feosol] 325 mg PO DAILY@0800 Escitalopram [Lexapro] 10 mg PO DAILY@0800 Coconut Oil 1000mg 1,000 mg PO DAILY@1700 Discharge Medication List Acetaminophen Tab [Tylenol Tab] 650 mg PO Q6H PRN 10/02/18 [History] Cholecalciferol (Vitamin D3) [Vitamin D3] 2,000 unit PO DAILY@0800 10/02/18 [ History] Coconut Oil 1000mg 1,000 mg PO DAILY@1700 10/02/18 [History] Escitalopram [Lexapro] 10 mg PO DAILY@0800 10/02/18 [History] Ferrous Sulfate [Feosol] 325 mg PO DAILY@0800 10/02/18 [History] Losartan [Cozaar] 50 mg PO DAILY@0800 10/02/18 [History] Melatonin 5 mg PO HS@199910/02/18 [History] QUEtiapine FUMARATE [SEROquel XR] 50 mg PO HS@199910/02/18 [History] busPIRone HCl [Buspar] 10 mg PO Q8H PRN 10/02/18 [History] Follow up Appointment(s)/Referral(s): Ynes Covarrubias MD [Primary Care Provider] - 1-2 days
== END 2018-10-04 14:50 | disposition home or self-care (01) ==
LOC: EC 18:36 → 1SOBS 20:15
PROVIDERS: ADMIT Internal Medicine; ATTEND Internal Medicine
DX: R55 Syncope and collapse (principal); I10 Essential (primary) hypertension; N39.0 Urinary tract infection, site not specified; F03.90 Unspecified dementia, unspecified severity, without behavioral disturbance, psychotic disturbance, mood disturbance, and anxiety; I70.0 Atherosclerosis of aorta; Z79.899 Other long term (current) drug therapy
CPT/HCPCS: 96365; 96366; 96375 ×2; 99285; 36415; 93005; 93306; 85379; 80053 ×3; 82550; 82553 ×2; 83735; 84484 ×2; 85025 ×3; 85610; 85730; 81001; 87086; 71046; 93880; 72125; 70450; G0378 ×3; J2060; J2405; J0696 ×2

== ENCOUNTER 2018-11-08 16:56 | Emergency (ER) | payer MEDICARE, BC ==
[2018-11-08] MEDS ORDERED: SODIUM CHLORIDE 0.9% 1,000 ML IV ONE (17:28)
[2018-11-08] MEDS ORDERED: ONDANSETRON 4 MG/2 ML VIAL IVP STA (17:28)
--- NOTE | 2018-11-08 17:33 | ED ---
General Adult HPI - General Chief complaint: Psychiatric Symptoms Stated complaint: Mental health Time Seen by Provider: 11/08/18 17:03 Source: EMS, RN notes reviewed Mode of arrival: EMS Limitations: altered mental status - History of Present Illness Initial comments: 78-year-old female patient is brought to the emergency department today for "not acting right". Patient does have a history of dementia and lives in an adult foster home. Staff reports that she is not acting herself and sent her here for mental health evaluation. Upon arrival patient has been vomiting in EMS. Patient states that she "doesn't feel right" but is unable to give specifics. States that she feels alone and like she is by herself which upsets her. She denies any suicidal or homicidal ideation. She denies any current physical symptoms or concerns. Denies headache, blurred vision, double vision, chest pain, shortness of breath, constipation, diarrhea, abdominal pain, fever, or chills. Denies any hematuria, dysuria, urinary frequency, urinary urgency. - Related Data Home Medications Medication Instructions Recorded Confirmed Cholecalciferol (Vitamin D3) 2,000 unit PO DAILY@0800 10/02/18 11/08/18 [Vitamin D3] Coconut Oil 1000mg 1,000 mg PO DAILY@1700 10/02/18 11/08/18 Escitalopram [Lexapro] 10 mg PO DAILY@0810/02/18 11/08/18 Ferrous Sulfate [Iron (65 MG 325 mg PO DAILY@0800 10/02/18 11/08/18 Elemental)] Losartan [Cozaar] 50 mg PO DAILY@79910/02/18 11/08/18 Melatonin 5 mg PO HS@199910/02/18 11/08/18 QUEtiapine FUMARATE [SEROquel XR] 50 mg PO HS@199910/02/18 11/08/18 Acetaminophen [Tylenol Arthritis] 1,300 mg PO Q6H PRN 11/08/18 11/08/18 Previous Rx's Medication Instructions Recorded LORazepam [Ativan] 1 mg PO BID 3 Days #6 tab 11/08/18 Allergies Allergy/AdvReac Type Severity Reaction Status Date / Time No Known Allergies Allergy Verified 11/08/18 17:24 Review of Systems ROS Statement: Those systems with pertinent positive or pertinent negative responses have been documented in the HPI. ROS Other: All systems not noted in ROS Statement are negative. Past Medical History Past Medical History: Dementia, Syncope Additional Past Medical History / Comment(s): dementia; A\\O X1 (SELF). History of Any Multi-Drug Resistant Organisms: None Reported Past Surgical History: Unable to Obtain Past Psychological History: No Psychological Hx Reported Smoking Status: Never smoker Past Alcohol Use History: None Reported Past Drug Use History: None Reported General Exam Limitations: altered mental status General appearance: alert, in no apparent distress, other (Physical well- developed, well-nourished elderly female patient in no acute distress. Vital signs upon presentation are temperature 97.9F, pulse 72, respirations 18, blood pressure 219/94, pulse ox 97% on room air.) Eye exam: Present: normal appearance, PERRL, EOMI. Absent: scleral icterus, conjunctival injection, periorbital swelling ENT exam: Present: normal exam, normal oropharynx, mucous membranes moist Respiratory exam: Present: normal lung sounds bilaterally. Absent: respiratory distress, wheezes, rales, rhonchi, stridor Cardiovascular Exam: Present: regular rate, normal rhythm, normal heart sounds. Absent: systolic murmur, diastolic murmur, rubs, gallop, clicks GI/Abdominal exam: Present: soft, normal bowel sounds. Absent: distended, tenderness, guarding, rebound, rigid Neurological exam: Present: alert, oriented X3, CN II-XII intact Psychiatric exam: Present: normal affect, normal mood Skin exam: Present: warm, dry, intact, normal color. Absent: rash Course Vital Signs 11/08/18 11/08/18 17:00 18:45 Temperature 97.9 F Pulse Rate 72 75 Respiratory 18 18 Rate Blood Pressure 219/94 171/66 O2 Sat by Pulse 97 Oximetry Medical Decision Making - Medical Decision Making 78-year-old female patient presents the emergency department today for evaluation of "not acting right". Patient does have a history of dementia and is at baseline oriented 1. Staff reports that she is not acting like herself. Patient reports she is sad and feels lonely. She denies any current physical symptoms or concerns. Labs reviewed and showed mild dehydration, we did provide IV fluids. Urinalysis shows no evidence of infection. Patient was seen and evaluated by emergency psychiatric services. She is alert, following commands, and does have general reasoning. She does not meet admission criteria for the mental health unit. She'll be discharged back to the adult foster care with prescription for Ativan for anxiety. They're instructed to follow-up with the doctor for recheck on Sunday. Return parameters discussed in detail. They verbalize understanding and agree with this plan. - Lab Data Result diagrams: 11/08/18 18:15 11/08/18 18:15 Lab Results 11/08/18 11/08/18 11/08/18 Range/Units 18:15 18:15 18:15 WBC 6.6 (3.8-10.6) k/uL RBC 4.32 (3.80-5.40) m/uL Hgb 12.3 (11.4-16.0) gm/dL Hct 37.8 (34.0-46.0) % MCV 87.6 (80.0-100.0) fL MCH 28.5 (25.0-35.0) pg MCHC 32.6 (31.0-37.0) g/dL RDW 13.0 (11.5-15.5) % Plt Count 282 (150-450) k/uL Neutrophils % 72 % Lymphocytes % 17 % Monocytes % 8 % Eosinophils % 1 % Basophils % 0 % Neutrophils # 4.8 (1.3-7.7) k/uL Lymphocytes # 1.1 (1.0-4.8) k/uL Monocytes # 0.5 (0-1.0) k/uL Eosinophils # 0.0 (0-0.7) k/uL Basophils # 0.0 (0-0.2) k/uL Sodium 139 (137-145) mmol/L Potassium 4.0 (3.5-5.1) mmol/L Chloride 106 (98-107) mmol/L Carbon Dioxide 23 (22-30) mmol/L Anion Gap 10 mmol/L BUN 18 H (7-17) mg/dL Creatinine 1.24 H (0.52-1.04) mg/dL Est GFR (CKD-EPI)AfAm 47 (>60 ml/min/1.73 sqM) Est GFR (CKD-EPI)NonAf 41 (>60 ml/min/1.73 sqM) Glucose 121 H (74-99) mg/dL Calcium 10.1 (8.4-10.2) mg/dL Total Bilirubin 0.6 (0.2-1.3) mg/dL AST 32 (14-36) U/L ALT 34 (9-52) U/L Alkaline Phosphatase 89 (38-126) U/L Troponin I <0.012 (0.000-0.034) ng/mL Total Protein 7.5 (6.3-8.2) g/dL Albumin 4.4 (3.5-5.0) g/dL Amylase 89 (30-110) U/L Lipase 118 (23-300) U/L Urine Color Urine Appearance (Clear) Urine pH (5.0-8.0) Ur Specific [place] (1.001-1.035) Urine Protein (Negative) Urine Glucose (UA) (Negative) Urine Ketones (Negative) Urine Blood (Negative) Urine Nitrite (Negative) Urine Bilirubin (Negative) Urine Urobilinogen (<2.0) mg/dL Ur Leukocyte Esterase (Negative) Urine Opiates Screen (NotDetected) Ur Oxycodone Screen (NotDetected) Urine Methadone Screen (NotDetected) Ur Propoxyphene Screen (NotDetected) Ur Barbiturates Screen (NotDetected) U Tricyclic Antidepress (NotDetected) Ur Phencyclidine Scrn (NotDetected) Ur Amphetamines Screen (NotDetected) U Methamphetamines Scrn (NotDetected) U Benzodiazepines Scrn (NotDetected) Urine Cocaine Screen (NotDetected) U Marijuana (THC) Screen (NotDetected) 11/08/18 Range/Units 19:20 WBC (3.8-10.6) k/uL RBC (3.80-5.40) m/uL Hgb (11.4-16.0) gm/dL Hct (34.0-46.0) % MCV (80.0-100.0) fL MCH (25.0-35.0) pg MCHC (31.0-37.0) g/dL RDW (11.5-15.5) % Plt Count (150-450) k/uL Neutrophils % % Lymphocytes % % Monocytes % % Eosinophils % % Basophils % % Neutrophils # (1.3-7.7) k/uL Lymphocytes # (1.0-4.8) k/uL Monocytes # (0-1.0) k/uL Eosinophils # (0-0.7) k/uL Basophils # (0-0.2) k/uL Sodium (137-145) mmol/L Potassium (3.5-5.1) mmol/L Chloride (98-107) mmol/L Carbon Dioxide (22-30) mmol/L Anion Gap mmol/L BUN (7-17) mg/dL Creatinine (0.52-1.04) mg/dL Est GFR (CKD-EPI)AfAm (>60 ml/min/1.73 sqM) Est GFR (CKD-EPI)NonAf (>60 ml/min/1.73 sqM) Glucose (74-99) mg/dL Calcium (8.4-10.2) mg/dL Total Bilirubin (0.2-1.3) mg/dL AST (14-36) U/L ALT (9-52) U/L Alkaline Phosphatase (38-126) U/L Troponin I (0.000-0.034) ng/mL Total Protein (6.3-8.2) g/dL Albumin (3.5-5.0) g/dL Amylase (30-110) U/L Lipase (23-300) U/L Urine Color Yellow Urine Appearance Clear (Clear) Urine pH 8.0 (5.0-8.0) Ur Specific [place] 1.020 (1.001-1.035) Urine Protein Trace H (Negative) Urine Glucose (UA) Negative (Negative) Urine Ketones 1+ H (Negative) Urine Blood Negative (Negative) Urine Nitrite Negative (Negative) Urine Bilirubin Negative (Negative) Urine Urobilinogen 2.0 (<2.0) mg/dL Ur Leukocyte Esterase Negative (Negative) Urine Opiates Screen Not Detected (NotDetected) Ur Oxycodone Screen Not Detected (NotDetected) Urine Methadone Screen Not Detected (NotDetected) Ur Propoxyphene Screen Not Detected (NotDetected) Ur Barbiturates Screen Not Detected (NotDetected) U Tricyclic Antidepress Not Detected (NotDetected) Ur Phencyclidine Scrn Not Detected (NotDetected) Ur Amphetamines Screen Not Detected (NotDetected) U Methamphetamines Scrn Not Detected (NotDetected) U Benzodiazepines Scrn Detected H (NotDetected) Urine Cocaine Screen Not Detected (NotDetected) U Marijuana (THC) Screen Not Detected (NotDetected) Disposition Clinical Impression: Agitation Disposition: HOME SELF-CARE Condition: Good Instructions (If sedation given, give patient instructions): Anxiety (ED) Additional Instructions: Follow up with the primary care physician for recheck in 1-2 days. Return to emergency department for recheck for any new, worsening, or concerning symptoms. Prescriptions: LORazepam [Ativan] 1 mg PO BID 3 Days #6 tab Is patient prescribed a controlled substance at d/c from ED?: No Referrals: Ynes Bledsoe MD [Primary Care Provider] - 1-2 days Time of Disposition: 20:30
[2018-11-08] MEDS ORDERED: LORazepam 2 MG/ML INJ IV STA ×2 (18:21→18:40)
[2018-11-08 18:36] LABS: Albumin 4.4 g/dL (3.5-5.0); Calcium 10.1 mg/dL (8.4-10.2); Total Bilirubin 0.6 mg/dL (0.2-1.3); Total Protein 7.5 g/dL (6.3-8.2)
[2018-11-08 18:40] LABS: Basophils % (A) 0 %; Eosinophils % (A) 1 %; HCT 37.8 % (34.0-46.0); HGB 12.3 gm/dL (11.4-16.0); Lymphocytes # (A) 1.1 k/uL (1.0-4.8); Lymphocytes % (A) 17 %; MCH 28.5 pg (25.0-35.0); MCHC 32.6 g/dL (31.0-37.0); MCV 87.6 fL (80.0-100.0); Mean Platelet Volume 7.7; Monocytes # (A) 0.5 k/uL (0-1.0); Monocytes % (A) 8 %; Neutrophils # (A) 4.8 k/uL (1.3-7.7); Neutrophils % (A) 72 %; Platelet Count 282 k/uL (150-450); RBC 4.32 m/uL (3.80-5.40); WBC 6.6 k/uL (3.8-10.6)
[2018-11-08 19:53] LABS: Appearance,Urine Clear (Clear); Bilirubin,Urine Negative (Negative); Blood,Urine Negative (Negative); Color,Urine Yellow; Glucose,Urine (UA) Negative (Negative); Ketones,Urine 1+ (Negative); Leukocyte Esterase,Urine Negative (Negative); Nitrite,Urine Negative (Negative); Protein,Urine Trace (Negative)
[2018-11-08 20:08] LABS: Amphetamine Screen,Urine Not Detected (NotDetected); Barbiturate Screen,Urine Not Detected (NotDetected); Benzodiazepines Screen,Urine Detected (NotDetected); Cocaine Screen,Urine Not Detected (NotDetected); Methadone Screen, Urine Not Detected (NotDetected); Opiate Screen,Urine Not Detected (NotDetected); Oxycodone Screen, Urine Not Detected (NotDetected); Phencyclidine Screen,Urine Not Detected (NotDetected); Tricyclic Antidepressant,Urine Not Detected (NotDetected); Urn Cannabinoid Scrn Not Detected (NotDetected)
[2018-11-08] MEDS ORDERED: LORazepam 1 MG TAB PO STA (20:28)
[2018-11-08 22:20] VITALS: BP 165/72; PULSE 68; RESP 16; TEMP 98
== END 2018-11-08 22:15 | disposition home or self-care (01) ==
LOC: EC 16:56
DX: R45.1 Restlessness and agitation (principal); E86.0 Dehydration; Z79.899 Other long term (current) drug therapy
CPT/HCPCS: 36415; 80053; 82150; 83690; 84484; 85025; 81003; 80306; 99284; 96374; 96375; 96361; J2060; J2405

== ENCOUNTER → 2018-11-18 | Outpatient (CLI) | payer MEDICARE, BC ==
--- NOTE | 2018-11-18 21:40 | MR ---
EXAMINATION TYPE: MR brain wo/w con DATE OF EXAM: 11/18/2018 COMPARISON: CT brain October 02, 2018 HISTORY: Visual field defect TECHNIQUE: Multiplanar, multisequence images of the brain and brainstem is performed without and with IV contras t, utilizing 6 mL intravenous Gadavist . FINDINGS: Diffusion weighted images demonstrate no evidence of a recent infarct or other diffusion ab normality. There is no worrisome extra-axial fluid collection. There is ventricular and sulcal promi nence redemonstrated. There is marked T2 hyperintensity in the deep and periventricular white matter bilaterally. Midline structures demonstrate normal morphology. The craniocervical junction appears within normal limits. Post contrast images demonstrate no abnormal enhancement. The dural venous sinuses appear pa tent. Some artifact distortion level of the globes is present. They appear within normal limits on re cent CT. Visualized paranasal sinuses are clear. IMPRESSION: No evidence of a recent infarct. Background mild to moderate diffuse cerebral atrophy and advanced chronic small vessel ischemic change redemonstrated. No suspicious enhancement is noted.
== END | disposition home or self-care (01) ==
LOC: RADMRIMAIN 19:11
PROVIDERS: ATTEND Ophthalmology
DX: G31.9 Degenerative disease of nervous system, unspecified (principal); I67.82 Cerebral ischemia; H53.461 Homonymous bilateral field defects, right side
CPT/HCPCS: 70553; A9585

== ENCOUNTER 2018-12-08 02:06 | Emergency (ER) | payer MEDICARE, BC ==
--- NOTE | 2018-12-08 02:10 | ED ---
General Adult HPI - General Stated complaint: Mental Health Time Seen by Provider: 12/08/18 02:08 - History of Present Illness Initial comments: Dang a pleasantly demented 78-year-old female is brought to the ED today via EMS for evaluation of emotional outbursts. Per EMS patient became agitated and threw some stuff, she did not hit anybody she did not strike anybody. She has a history of this kind of behavior. Caregivers at the facility sent her to the ER for further evaluation. Charito'elziabeth states she can't recall upset her but she has a very bad temper and she is aware of this. Patient denies any complaints. - Related Data Home Medications Medication Instructions Recorded Confirmed Cholecalciferol (Vitamin D3) 2,000 unit PO DAILY@79910/02/18 11/08/18 [Vitamin D3] Coconut Oil 1000mg 1,000 mg PO DAILY@1700 10/02/18 11/08/18 Escitalopram [Lexapro] 10 mg PO DAILY@79910/02/18 11/08/18 Ferrous Sulfate [Iron (65 MG 325 mg PO DAILY@79910/02/18 11/08/18 Elemental)] Losartan [Cozaar] 50 mg PO DAILY@79910/02/18 11/08/18 Melatonin 5 mg PO HS@199910/02/18 11/08/18 QUEtiapine FUMARATE [SEROquel XR] 50 mg PO HS@199910/02/18 11/08/18 Acetaminophen [Tylenol Arthritis] 1,300 mg PO Q6H PRN 11/08/18 11/08/18 Previous Rx's Medication Instructions Recorded LORazepam [Ativan] 1 mg PO BID 3 Days #6 tab 11/08/18 Allergies Allergy/AdvReac Type Severity Reaction Status Date / Time No Known Allergies Allergy Verified 11/08/18 17:24 Review of Systems ROS Statement: Those systems with pertinent positive or pertinent negative responses have been documented in the HPI. ROS Other: All systems not noted in ROS Statement are negative. Past Medical History Past Medical History: Dementia, Syncope Additional Past Medical History / Comment(s): dementia; A\O X1 (SELF). History of Any Multi-Drug Resistant Organisms: None Reported Past Surgical History: Unable to Obtain Past Psychological History: No Psychological Hx Reported Smoking Status: Never smoker Past Alcohol Use History: None Reported Past Drug Use History: None Reported General Exam - General Exam Comments Initial Comments: Physical Exam GENERAL: Patient is well-developed and well-nourished. Patient is nontoxic and well- hydrated and is in no distress. HENT: Normocephalic, Atraumatic. EYES: PERRL, EOMI PULMONARY: Unlabored respirations. No audible rales rhonchi or wheezing was noted. CARDIOVASCULAR: There is a regular rate and rhythm without any murmurs gallops or rubs. ABDOMEN: Soft and nontender with normal bowel sounds. SKIN: Skin is clear with no lesions or rashes and otherwise unremarkable. : Deferred NEUROLOGIC: Alert and oriented to self MUSCULOSKELETAL: Normal extremities with adequate strength and full range of motion. No lower extremity swelling or edema. No calf tenderness. PSYCHIATRIC: Deny suicidal or homicidal ideation. Admits to having a short temper and emotional outbursts Course Vital Signs 12/08/18 12/08/18 02:12 05:21 Temperature 98.3 F 97.7 F Pulse Rate 62 80 Respiratory 16 18 Rate Blood Pressure 143/62 133/80 O2 Sat by Pulse 98 98 Oximetry Medical Decision Making - Medical Decision Making The patient was seen and evaluated history is obtained from EMS and patient This is a pleasantly demented 78-year-old female who is known to have emotional outburst at times. Apparently she became agitated and picked up some stuff and threw it. She does not strike anybody she is not petitioned caregivers at facility sent her here for evaluation. Basic labs and urinalysis will be obtained Patient remaining calm and cooperative able to ambulate to the restroom Labs are unremarkable, patient eager for discharge home - Lab Data Result diagrams: 12/08/18 02:20 12/08/18 02:20 Lab Results 12/08/18 12/08/18 12/08/18 Range/Units 02:20 02:20 02:20 WBC 6.5 (3.8-10.6) k/uL RBC 3.99 (3.80-5.40) m/uL Hgb 11.5 (11.4-16.0) gm/dL Hct 36.7 (34.0-46.0) % MCV 92.1 (80.0-100.0) fL MCH 28.9 (25.0-35.0) pg MCHC 31.3 (31.0-37.0) g/dL RDW 13.1 (11.5-15.5) % Plt Count 280 (150-450) k/uL Neutrophils % 52 % Lymphocytes % 35 % Monocytes % 8 % Eosinophils % 1 % Basophils % 1 % Neutrophils # 3.4 (1.3-7.7) k/uL Lymphocytes # 2.3 (1.0-4.8) k/uL Monocytes # 0.6 (0-1.0) k/uL Eosinophils # 0.1 (0-0.7) k/uL Basophils # 0.0 (0-0.2) k/uL Sodium 141 (137-145) mmol/L Potassium 4.4 (3.5-5.1) mmol/L Chloride 106 (98-107) mmol/L Carbon Dioxide 28 (22-30) mmol/L Anion Gap 7 mmol/L BUN 21 H (7-17) mg/dL Creatinine 1.27 H (0.52-1.04) mg/dL Est GFR (CKD-EPI)AfAm 46 (>60 ml/min/1.73 sqM) Est GFR (CKD-EPI)NonAf 40 (>60 ml/min/1.73 sqM) Glucose 83 (74-99) mg/dL Calcium 10.0 (8.4-10.2) mg/dL Total Bilirubin 0.3 (0.2-1.3) mg/dL AST 22 (14-36) U/L ALT 24 (9-52) U/L Alkaline Phosphatase 64 (38-126) U/L Troponin I <0.012 (0.000-0.034) ng/mL Total Protein 7.1 (6.3-8.2) g/dL Albumin 4.2 (3.5-5.0) g/dL Urine Color Urine Appearance (Clear) Urine pH (5.0-8.0) Ur Specific [place] (1.001-1.035) Urine Protein (Negative) Urine Glucose (UA) (Negative) Urine Ketones (Negative) Urine Blood (Negative) Urine Nitrite (Negative) Urine Bilirubin (Negative) Urine Urobilinogen (<2.0) mg/dL Ur Leukocyte Esterase (Negative) Urine RBC (0-5) /hpf Urine WBC (0-5) /hpf Ur Squamous Epith Cells (0-4) /hpf Ur Transition Epith Cell (0-1) /hpf Urine Bacteria (None) /hpf 12/08/18 Range/Units 03:49 WBC (3.8-10.6) k/uL RBC (3.80-5.40) m/uL Hgb (11.4-16.0) gm/dL Hct (34.0-46.0) % MCV (80.0-100.0) fL MCH (25.0-35.0) pg MCHC (31.0-37.0) g/dL RDW (11.5-15.5) % Plt Count (150-450) k/uL Neutrophils % % Lymphocytes % % Monocytes % % Eosinophils % % Basophils % % Neutrophils # (1.3-7.7) k/uL Lymphocytes # (1.0-4.8) k/uL Monocytes # (0-1.0) k/uL Eosinophils # (0-0.7) k/uL Basophils # (0-0.2) k/uL Sodium (137-145) mmol/L Potassium (3.5-5.1) mmol/L Chloride (98-107) mmol/L Carbon Dioxide (22-30) mmol/L Anion Gap mmol/L BUN (7-17) mg/dL Creatinine (0.52-1.04) mg/dL Est GFR (CKD-EPI)AfAm (>60 ml/min/1.73 sqM) Est GFR (CKD-EPI)NonAf (>60 ml/min/1.73 sqM) Glucose (74-99) mg/dL Calcium (8.4-10.2) mg/dL Total Bilirubin (0.2-1.3) mg/dL AST (14-36) U/L ALT (9-52) U/L Alkaline Phosphatase (38-126) U/L Troponin I (0.000-0.034) ng/mL Total Protein (6.3-8.2) g/dL Albumin (3.5-5.0) g/dL Urine Color Light Yellow Urine Appearance Clear (Clear) Urine pH 5.5 (5.0-8.0) Ur Specific [place] 1.012 (1.001-1.035) Urine Protein Negative (Negative) Urine Glucose (UA) Negative (Negative) Urine Ketones Negative (Negative) Urine Blood Small H (Negative) Urine Nitrite Negative (Negative) Urine Bilirubin Negative (Negative) Urine Urobilinogen <2.0 (<2.0) mg/dL Ur Leukocyte Esterase Moderate H (Negative) Urine RBC 3 (0-5) /hpf Urine WBC 4 (0-5) /hpf Ur Squamous Epith Cells 1 (0-4) /hpf Ur Transition Epith Cell <1 (0-1) /hpf Urine Bacteria Rare H (None) /hpf Disposition Clinical Impression: Agitation Disposition: HOME SELF-CARE Condition: Stable Is patient prescribed a controlled substance at d/c from ED?: No Referrals: Ynes Bledsoe MD [Primary Care Provider] - 1-2 days
[2018-12-08 03:08] LABS: Basophils % (A) 1 %; Eosinophils # (A) 0.1 k/uL (0-0.7); Eosinophils % (A) 1 %; HCT 36.7 % (34.0-46.0); HGB 11.5 gm/dL (11.4-16.0); Lymphocytes # (A) 2.3 k/uL (1.0-4.8); Lymphocytes % (A) 35 %; MCH 28.9 pg (25.0-35.0); MCHC 31.3 g/dL (31.0-37.0); MCV 92.1 fL (80.0-100.0); Mean Platelet Volume 7.5; Monocytes # (A) 0.6 k/uL (0-1.0); Monocytes % (A) 8 %; Neutrophils # (A) 3.4 k/uL (1.3-7.7); Neutrophils % (A) 52 %; Platelet Count 280 k/uL (150-450); RBC 3.99 m/uL (3.80-5.40); RDW 13.1 % (11.5-15.5); WBC 6.5 k/uL (3.8-10.6)
[2018-12-08 03:19] LABS: Albumin 4.2 g/dL (3.5-5.0); Potassium 4.4 mmol/L (3.5-5.1); Total Bilirubin 0.3 mg/dL (0.2-1.3); Total Protein 7.1 g/dL (6.3-8.2)
[2018-12-08 04:12] LABS: Appearance,Urine Clear (Clear); Bacteria,Urine Rare /hpf; Bilirubin,Urine Negative (Negative); Blood,Urine Small (Negative); Color,Urine Light Yellow; Glucose,Urine (UA) Negative (Negative); Ketones,Urine Negative (Negative); Leukocyte Esterase,Urine Moderate (Negative); Nitrite,Urine Negative (Negative); PH, Urine 5.5 (5.0-8.0); Protein,Urine Negative (Negative); RBC,Urine 3 /hpf (0-5); Specific Gravity,Urine 1.012 (1.001-1.035); Squamous Epithelial Cell,Urine 1 /hpf (0-4); Transitional Epi Cells,Urine <1 /hpf (0-1); Urobilinogen,Urine <2.0 mg/dL (<2.0)
[2018-12-08 05:24] VITALS: BP 133/80; PULSE 80; RESP 18; TEMP 97.7
== END 2018-12-08 05:24 | disposition home or self-care (01) ==
LOC: EC 02:06
DX: R45.1 Restlessness and agitation (principal); R45.89 Other symptoms and signs involving emotional state; Z79.899 Other long term (current) drug therapy
CPT/HCPCS: 36415; 70450; 80053; 81001; 82075; 84484; 85025; 99285

== ENCOUNTER 2018-12-08 08:32 | Emergency (ER) | payer MEDICARE, BC ==
[2018-12-08 08:48] VITALS: RESP 18
[2018-12-08 09:05] VITALS: TEMP 98
--- NOTE | 2018-12-08 09:07 | ED ---
General Adult HPI - General Chief complaint: Psychiatric Symptoms Stated complaint: mental health Time Seen by Provider: 12/08/18 08:35 Source: patient, EMS, RN notes reviewed Mode of arrival: EMS Limitations: no limitations - History of Present Illness Initial comments: This is an 6-year-old female who is brought to the emergency department because she was acting out all night. Patient was brought in earlier this morning and was discharged home. According to the notes I read the patient was agitated at the facility because of the whole time she was here. Basic labs and urine were sent earlier. Staff states she got back to the facility and continued to yell and scream about wanting to leave and pounding on doors stating she wants to go home. Patient currently does not remember any of this. Patient has significant dementia according to staff and when asked what her age when she believes she is 19. Patient does not appear agitated now and states she does not remember yelling or screaming and she is quite embarrassed that that may have occurred earlier. Patient has not been recently ill according to staff and patient currently states she is having no pain. - Related Data Home Medications Medication Instructions Recorded Confirmed Cholecalciferol (Vitamin D3) 2,000 unit PO DAILY@0800 10/02/18 12/08/18 [Vitamin D3] Coconut Oil 1000mg 1,000 mg PO DAILY@139910/02/18 12/08/18 Escitalopram [Lexapro] 10 mg PO DAILY@0800 10/02/18 12/08/18 Ferrous Sulfate [Iron (65 MG 325 mg PO DAILY@79910/02/18 12/08/18 Elemental)] Losartan [Cozaar] 50 mg PO DAILY@79910/02/18 12/08/18 Melatonin 5 mg PO HS@199910/02/18 12/08/18 Acetaminophen [Tylenol Arthritis] 1,300 mg PO Q6H PRN 11/08/18 12/08/18 LORazepam [Ativan] 0.5 mg PO BID PRN 12/08/18 12/08/18 LORazepam [Ativan] 0.5 mg PO DAILY@1400 12/08/18 12/08/18 QUEtiapine FUMARATE [SEROquel] 25 mg PO BID@0800,199912/08/18 12/08/18 Allergies Allergy/AdvReac Type Severity Reaction Status Date / Time No Known Allergies Allergy Verified 12/08/18 09:21 Review of Systems ROS Statement: Those systems with pertinent positive or pertinent negative responses have been documented in the HPI. ROS Other: All systems not noted in ROS Statement are negative. Past Medical History Past Medical History: Dementia, Syncope Additional Past Medical History / Comment(s): dementia; A\O X1 (SELF). History of Any Multi-Drug Resistant Organisms: None Reported Past Surgical History: Unable to Obtain Past Psychological History: No Psychological Hx Reported Smoking Status: Never smoker Past Alcohol Use History: None Reported Past Drug Use History: None Reported General Exam - General Exam Comments Initial Comments: GENERAL: Patient is well-developed and well-nourished. Patient is nontoxic and well- hydrated and is in no acute distress. ENT: Neck is soft and supple. No significant lymphadenopathy is noted. Oropharynx is clear. Moist mucous membranes. Neck has full range of motion without eliciting any pain. EYES: The sclera were anicteric and conjunctiva were pink and moist. Extraocular movements were intact and pupils were equal round and reactive to light. Eyelids were unremarkable. PULMONARY: Unlabored respirations. Good breath sounds bilaterally. No audible rales rhonchi or wheezing was noted. CARDIOVASCULAR: There is a regular rate and rhythm without any murmurs gallops or rubs. ABDOMEN: Soft and nontender with normal bowel sounds. SKIN: Skin is clear with no lesions or rashes and otherwise unremarkable. NEUROLOGIC: Patient is alert and oriented 2 Cranial nerves II through XII are grossly intact. Motor and sensory are also intact. Normal speech, volume and content. Symmetrical smile. MUSCULOSKELETAL: Normal extremities with adequate strength and full range of motion. No lower extremity swelling or edema. No calf tenderness. LYMPHATICS: No significant lymphadenopathy is noted PSYCHIATRIC: According to staff patient was yelling and screaming about wanting to leave the facility. Patient had to be physically restrained by staff. Currently the patient is calm Limitations: no limitations Course Vital Signs 12/08/18 12/08/18 08:33 09:04 Temperature 98.0 F Pulse Rate 77 Respiratory 18 Rate Blood Pressure 148/75 O2 Sat by Pulse 98 Oximetry Disposition Clinical Impression: Agitation, Dementia Disposition: HOME SELF-CARE Condition: Good Instructions (If sedation given, give patient instructions): Dementia (ED) Additional Instructions: Patient should take her Seroquel nightly Is patient prescribed a controlled substance at d/c from ED?: No Referrals: Ynes Bledsoe MD [Primary Care Provider] - 1-2 days Time of Disposition: 11:11
--- NOTE | 2018-12-08 09:36 | CT ---
EXAMINATION TYPE: CT brain wo con DATE OF EXAM: 12/08/2018 COMPARISON: Previous study dated 10/02/2018 HISTORY: Mental health CT DLP: 1086.4 mGycm Automated exposure control for dose reduction was used. FINDINGS: There are generalized changes of sulcal prominence and ventriculomegaly, compatible with atrophic zoraida nge. There is diffuse periventricular white matter lucency, compatible with small vessel ischemic zoraida nge. There is vascular calcification present. There is no acute focal lesion, mass effect or midline shift identified. I do not see evidence of intracranial blood. Visualized portions of the paranasal sinuses and mastoids are clear. The bony calvarium is intact. IMPRESSION: 1. NO ACUTE INTRACRANIAL ABNORMALITY. 2. ATROPHIC CHANGE. 3. WHITE MATTER ISCHEMIC CHANGE.
[2018-12-08 12:01] VITALS: BP 158/68; PULSE 68
== END 2018-12-08 11:50 | disposition home or self-care (01) ==
LOC: EC 08:32
DX: F03.90 Unspecified dementia, unspecified severity, without behavioral disturbance, psychotic disturbance, mood disturbance, and anxiety (principal); R45.1 Restlessness and agitation; Z79.899 Other long term (current) drug therapy
CPT/HCPCS: 70450; 82075; 99285

== ENCOUNTER 2019-01-19 01:38 | Emergency (ER) | payer MEDICARE, BC ==
[2019-01-19 01:46] VITALS: RESP 18
[2019-01-19] MEDS ORDERED: DIPH,PERTUS(ACELL)TETVAC-LF 0.5 ML VIAL IM ONE (01:58)
[2019-01-19] MEDS ORDERED: TOPICAL SKIN ADHESIVE 1 EACH AMP TOPICAL ONE (01:58)
--- NOTE | 2019-01-19 02:04 | ED ---
Fall HPI - General Chief Complaint: Fall Stated Complaint: Fall Time Seen by Provider: 01/19/19 01:46 Source: EMS - History of Present Illness Initial Comments: Tata is a pleasantly demented 78 yo female who is brought to the emergency department today via EMS for evaluation of head injury after a fall. Per caregivers at the nursing facility patient was standing in her rheumatoid to walk when she lost her balance falling forward, there are hand reveals around the outside of her room and they believe she struck the left side of her forehead on a handrail. They heard her fall immediately attended to her, she had no loss of consciousness. Patient offers no complaints. They're uncertain of her tetanus vaccine status. MD Complaint: fall -: minutes(s) Fall From: standing When Fall Occurred: [address] Fall Occurred: long-term/SNF Loss of Consciousness: none Prolonged Down Time?: no Symptoms Prior to Fall: none Location: head - Related Data Home Medications Medication Instructions Recorded Confirmed Cholecalciferol (Vitamin D3) 2,000 unit PO DAILY@0800 10/02/18 12/08/18 [Vitamin D3] Coconut Oil 1000mg 1,000 mg PO DAILY@1400 10/02/18 12/08/18 Escitalopram [Lexapro] 10 mg PO DAILY@0800 10/02/18 12/08/18 Ferrous Sulfate [Iron (65 MG 325 mg PO DAILY@0810/02/18 12/08/18 Elemental)] Losartan [Cozaar] 50 mg PO DAILY@0800 10/02/18 12/08/18 Melatonin 5 mg PO HS@199910/02/18 12/08/18 Acetaminophen [Tylenol Arthritis] 1,300 mg PO Q6H PRN 11/08/18 12/08/18 LORazepam [Ativan] 0.5 mg PO BID PRN 12/08/18 12/08/18 LORazepam [Ativan] 0.5 mg PO DAILY@139912/08/18 12/08/18 QUEtiapine FUMARATE [SEROquel] 25 mg PO BID@0800,199912/08/18 12/08/18 Allergies Allergy/AdvReac Type Severity Reaction Status Date / Time No Known Allergies Allergy Verified 01/19/19 01:46 Review of Systems ROS Statement: Those systems with pertinent positive or pertinent negative responses have been documented in the HPI. Limitations: ROS unobtainable due to patients medical condition (Dementia) Past Medical History Past Medical History: Dementia, Syncope Additional Past Medical History / Comment(s): dementia; A\O X1 (SELF). History of Any Multi-Drug Resistant Organisms: None Reported Past Surgical History: Unable to Obtain Past Psychological History: No Psychological Hx Reported Smoking Status: Never smoker Past Alcohol Use History: None Reported Past Drug Use History: None Reported General Exam - General Exam Comments Initial Comments: Physical Exam GENERAL: Patient is well-developed and well-nourished. Patient is nontoxic and well- hydrated and is in no distress. HENT: Contusion to left lateral eyebrow, no active bleeding EYES: PERRL, EOMI PULMONARY: Unlabored respirations. No audible rales rhonchi or wheezing was noted. CARDIOVASCULAR: There is a regular rate and rhythm without any murmurs gallops or rubs. ABDOMEN: Soft and nontender with normal bowel sounds. SKIN: Skin is clear with no lesions or rashes and otherwise unremarkable. : Deferred NEUROLOGIC: Alert and oriented to self Able to identify that she is at a hospital Moving all extremities, able to stand and ambulate with assistance which is her baseline MUSCULOSKELETAL: Normal extremities with adequate strength and full range of motion. No lower extremity swelling or edema. No calf tenderness. PSYCHIATRIC: Normal psychiatric evaluation Limitations: altered mental status, physical limitation Course Vital Signs 01/19/19 01:42 Temperature 98.4 F Pulse Rate 68 Respiratory 18 Rate Blood Pressure 156/86 O2 Sat by Pulse 97 Oximetry Medical Decision Making - Medical Decision Making The patient was seen and evaluated, history is obtained from the patient and caregivers a long-term Patient with a fall, struck her head, no loss of consciousness EKG was obtained due to complaint of fall, EKG obtained at 1:55 AM, rate 65 rhythm is sinus tachycardia normal axis there are normal intervals, [place] 188, QRS 88, QTC is 413 there are no acute ST elevations or depressions there is no evidence of acute ischemia or infarction. CT with no acute injury Patient able to ambulate to restroom with caregiver assistance which is patient's baseline At this time caregivers comfortable with the plan for discharge home to long-term where the patient will continue to be observed Disposition Clinical Impression: Fall Disposition: HOME SELF-CARE Condition: Stable Instructions (If sedation given, give patient instructions): Fall Prevention for Older Adults (ED) Is patient prescribed a controlled substance at d/c from ED?: No Referrals: Ynes Bledsoe MD [Primary Care Provider] - 1-2 days
--- NOTE | 2019-01-19 02:45 | CT ---
EXAM: CT Head Without Intravenous Contrast CLINICAL HISTORY: ITS.REASON CT Reason: Pain TECHNIQUE: Axial computed tomography images of the head/brain without intravenous contrast. CTDI is 25 mGy and DLP is 732 mGy-cm. This CT exam was performed using one or more of the following dose reduction techniques: automated exposure control, adjustment of the mA and/or kV according to patient size, and/or use of iterative reconstruction technique. COMPARISON: No relevant prior studies available. FINDINGS: Brain: No hemorrhage, large hypodensity, or mass effect. Chronic microvascular ischemic changes. Ventricles: No hydrocephalus. Age-appropriate cerebral volume loss. Bones/joints: Unremarkable. Soft tissues: Unremarkable. Sinuses: Unremarkable. Mastoid air cells: Clear. IMPRESSION: No acute hemorrhage, hydrocephalus, or mass effect. EXAM: CT Cervical Spine Without Intravenous Contrast CLINICAL HISTORY: ITS.REASON CT Reason: Pain TECHNIQUE: Axial computed tomography images of the cervical spine without intravenous contrast. CTDI is 10 mGy and DLP is 274 mGy-cm. This CT exam was performed using one or more of the following dose reduction techniques: automated exposure control, adjustment of the mA and/or kV according to patient size, and/or use of iterative reconstruction technique. COMPARISON: No relevant prior studies available. FINDINGS: Vertebrae: No acute fracture. Discs/spinal canal/neural foramina: Multilevel degenerative disc disease, Severe from C5-C7. No high grade spinal canal stenosis. Soft tissues: Prevertebral soft tissue prominence is likely due to retropharyngeal course of the carotids. IMPRESSION: No acute fracture or subluxation.
--- NOTE | 2019-01-19 02:48 | CT ---
EXAM: CT Head Without Intravenous Contrast CT Maxillofacial Without Intravenous Contrast CLINICAL HISTORY: ITS.REASON CT Reason: Pain TECHNIQUE: Axial computed tomography images of the head/brain and face without intravenous contrast. CTDI is 10 mGy and DLP is 274 mGy-cm. This CT exam was performed using one or more of the following dose reduction techniques: automated exposure control, adjustment of the mA and/or kV according to patient size, and/or use of iterative reconstruction technique. COMPARISON: No relevant prior studies available. FINDINGS: Bones/joints: No acute fracture. Soft tissues: Unremarkable. Sinuses: Unremarkable. No acute sinusitis. Mastoid air cells: Unremarkable. No mastoid effusion. Orbits: Unremarkable. IMPRESSION: No acute findings.
[2019-01-19 03:31] VITALS: BP 169/72; PULSE 66; TEMP 98
== END 2019-01-19 03:51 | disposition home or self-care (01) ==
LOC: EC 01:38
DX: S00.12XA Contusion of left eyelid and periocular area, initial encounter (principal); Z23 Encounter for immunization; R00.0 Tachycardia, unspecified; F03.90 Unspecified dementia, unspecified severity, without behavioral disturbance, psychotic disturbance, mood disturbance, and anxiety; Z79.899 Other long term (current) drug therapy; W01.0XXA Fall on same level from slipping, tripping and stumbling without subsequent striking against object, initial encounter
CPT/HCPCS: 70450; 70486; 72125; 90471; 90715; 99284

== ENCOUNTER 2019-01-20 19:40 | Emergency (ER) | payer MEDICARE, BC ==
[2019-01-20 19:48] VITALS: RESP 18; TEMP 98
--- NOTE | 2019-01-20 21:14 | XR ---
EXAMINATION TYPE: XR chest 2V DATE OF EXAM: 01/20/2019 COMPARISON: 10/02/2018 HISTORY: Pain TECHNIQUE: Frontal and lateral views of the chest are obtained. FINDINGS: Heart and mediastinum are normal. Lungs are clear. Diaphragm is normal. Bony thorax is int act. IMPRESSION: Normal chest. Normal heart. No change.
--- NOTE | 2019-01-20 21:15 | XR ---
EXAMINATION TYPE: XR hand complete RT DATE OF EXAM: 01/20/2019 COMPARISON: NONE HISTORY: Pain TECHNIQUE: 3 views FINDINGS: There is slightly impacted transverse fracture distal radial metaphysis. Metacarpals are in tact. There is narrowing and spurring at the first carpometacarpal joint. Scaphoid appears intact. Th ere is nondisplaced fracture of the ulnar styloid process. IMPRESSION: Nondisplaced fractures of the distal radius and ulna.
--- NOTE | 2019-01-20 21:16 | XR ---
EXAMINATION TYPE: XR wrist complete RT DATE OF EXAM: 01/20/2019 COMPARISON: NONE HISTORY: Pain TECHNIQUE: 4 views FINDINGS: There is an acute transverse fracture distal radial metaphysis. There is nondisplaced fract ure ulnar styloid process. There is no dislocation. Carpal bones are intact. IMPRESSION: Acute nondisplaced fractures distal radius and ulna.
--- NOTE | 2019-01-20 21:46 | ED ---
General Adult HPI - General Chief complaint: Extremity Injury, Upper Stated complaint: R wrist injury Time Seen by Provider: 01/20/19 19:42 Source: EMS, RN notes reviewed Mode of arrival: EMS Limitations: altered mental status - History of Present Illness Initial comments: 78-year-old female presents for right wrist pain. Patient was seen here for a fall about 2 days ago but then had another fall last night. This was not witnessed that was heard. No evidence for head injury. Patient does have a history of dementia and is at baseline. Patient denies any right-sided rib pain but apparently was complaining of this at the alf. Apparently patient had a portable x-ray done of the wrist and was sent here for further imaging and evaluation. Patient has no other complaints at this time including shortness of breath, chest pain, abdominal pain, nausea or vomiting, headache, or visual changes. - Related Data Home Medications Medication Instructions Recorded Confirmed Cholecalciferol (Vitamin D3) 2,000 unit PO DAILY@0800 10/02/18 12/08/18 [Vitamin D3] Coconut Oil 1000mg 1,000 mg PO DAILY@1400 10/02/18 12/08/18 Escitalopram [Lexapro] 10 mg PO DAILY@0800 10/02/18 12/08/18 Ferrous Sulfate [Iron (65 MG 325 mg PO DAILY@0810/02/18 12/08/18 Elemental)] Losartan [Cozaar] 50 mg PO DAILY@0800 10/02/18 12/08/18 Melatonin 5 mg PO HS@199910/02/18 12/08/18 Acetaminophen [Tylenol Arthritis] 1,300 mg PO Q6H PRN 11/08/18 12/08/18 LORazepam [Ativan] 0.5 mg PO BID PRN 12/08/18 12/08/18 LORazepam [Ativan] 0.5 mg PO DAILY@1400 12/08/18 12/08/18 QUEtiapine FUMARATE [SEROquel] 25 mg PO BID@0800,199912/08/18 12/08/18 Allergies Allergy/AdvReac Type Severity Reaction Status Date / Time No Known Allergies Allergy Verified 01/20/19 19:48 Review of Systems ROS Statement: Those systems with pertinent positive or pertinent negative responses have been documented in the HPI. ROS Other: All systems not noted in ROS Statement are negative. Past Medical History Past Medical History: Dementia, Syncope Additional Past Medical History / Comment(s): dementia; A\O X1 (SELF). History of Any Multi-Drug Resistant Organisms: None Reported Past Surgical History: Unable to Obtain Past Psychological History: No Psychological Hx Reported Smoking Status: Never smoker Past Alcohol Use History: None Reported Past Drug Use History: None Reported General Exam - General Exam Comments Initial Comments: Right wrist: Patient has limited range of motion of the right wrist but is able to flex and extend somewhat. Radial pulse 2+, capillary refill less than 2 seconds. Able to move all digits in the right hand. Sensation intact. There is significant ecchymosis and mild edema noted to the right wrist. Limitations: altered mental status General appearance: alert, in no apparent distress Head exam: Present: atraumatic, normocephalic, normal inspection Eye exam: Present: normal appearance, PERRL, EOMI. Absent: scleral icterus, conjunctival injection, periorbital swelling ENT exam: Present: normal exam, mucous membranes moist Neck exam: Present: normal inspection, full ROM. Absent: tenderness, meningismus Respiratory exam: Present: normal lung sounds bilaterally, chest wall tenderness (Midnight patient has some right-sided rib tenderness but no significant ecchymosis or bruising. no step offs). Absent: respiratory distress, wheezes, rales, rhonchi, stridor Cardiovascular Exam: Present: regular rate, normal rhythm, normal heart sounds. Absent: bradycardia, tachycardia, irregular rhythm GI/Abdominal exam: Present: soft, normal bowel sounds. Absent: distended, tenderness (No tenderness in abdomen whatsoever), guarding, rebound, rigid Back exam: Absent: vertebral tenderness (No cervical thoracic or lumbar spine tenderness) Neurological exam: Present: alert, oriented X3, CN II-XII intact Psychiatric exam: Present: normal affect, normal mood Course Vital Signs 01/20/19 19:46 Temperature 98 F Pulse Rate 59 L Respiratory 18 Rate Blood Pressure 140/45 O2 Sat by Pulse 99 Oximetry Procedures - Orthopedic Splinting/Casting Injury #1 Side: right Upper Extremity Injury Location: short arm Upper Extremity Immobilizer: volar splint Additional Comments: Neurovascular status intact Medical Decision Making - Medical Decision Making 78-year-old female presents to the emergency department for a chief complaint of right wrist pain. Patient had a fall last night. No loss of consciousness or head injury. Patient was complaint some right rib pain lateral aspect which is unremarkable. Ecchymosis noted of the right wrist area. There is some edema as well. Radial pulse 2+. Neurovascular status is intact. Chest x-ray shows a normal chest. Wrist x-ray shows acute nondisplaced fractures of the distal radius and ulna. Splint was applied. Patient will follow up with orthopedics in one to 2 days. Will return here if she has any worsening symptoms. Disposition Clinical Impression: Fracture of radius and ulna, distal Disposition: HOME SELF-CARE Condition: Good Instructions (If sedation given, give patient instructions): Wrist Fracture in Adults (ED) Additional Instructions: Please give Tylenol for pain. Rest ice and elevate the right wrist. Have patient follow up with orthopedics in one to 2 days. Keep splint dry in the meantime. Return here to the emergency department if patient develops any worsening symptoms. Is patient prescribed a controlled substance at d/c from ED?: No Referrals: Ynes Bledsoe MD [Primary Care Provider] - 1-2 days Finn Chisholm MD [Medical Doctor] - 1-2 days Time of Disposition: 22:05
[2019-01-20 22:16] VITALS: BP 129/45; PULSE 62
== END 2019-01-20 22:16 | disposition home or self-care (01) ==
LOC: EC 19:40
DX: S52.501A Unspecified fracture of the lower end of right radius, initial encounter for closed fracture (principal); S52.601A Unspecified fracture of lower end of right ulna, initial encounter for closed fracture; R07.81 Pleurodynia; F03.90 Unspecified dementia, unspecified severity, without behavioral disturbance, psychotic disturbance, mood disturbance, and anxiety; Z79.899 Other long term (current) drug therapy; W19.XXXA Unspecified fall, initial encounter
CPT/HCPCS: 29125; 71046; 99283

== ENCOUNTER 2019-01-21 20:53 | Emergency (ER) | payer MEDICARE, BC ==
--- NOTE | 2019-01-21 21:35 | XR ---
EXAMINATION TYPE: XR chest 1V portable DATE OF EXAM: 01/21/2019 COMPARISON: 01/20/2019 HISTORY: Altered mental status TECHNIQUE: Single frontal view of the chest is obtained. FINDINGS: Heart and mediastinum are normal. Lungs are clear of consolidation. Costophrenic angles ar e clear. Bony thorax is intact. IMPRESSION: No active cardiopulmonary disease. No change.
[2019-01-21 22:08] LABS: Glucose,Whole Blood 103 mg/dL (75-99)
[2019-01-21 22:26] LABS: Albumin 3.8 g/dL (3.5-5.0); Calcium 9.4 mg/dL (8.4-10.2); Potassium 4.3 mmol/L (3.5-5.1); Total Bilirubin 0.4 mg/dL (0.2-1.3); Total Protein 6.5 g/dL (6.3-8.2)
[2019-01-21 22:27] LABS: Basophils % (A) 0 %; Eosinophils # (A) 0.2 k/uL (0-0.7); Eosinophils % (A) 2 %; HCT 31.5 % (34.0-46.0); Lymphocytes # (A) 1.5 k/uL (1.0-4.8); Lymphocytes % (A) 23 %; MCH 28.6 pg (25.0-35.0); MCHC 31.7 g/dL (31.0-37.0); Mean Platelet Volume 7.6; Monocytes # (A) 0.7 k/uL (0-1.0); Monocytes % (A) 10 %; Neutrophils # (A) 4.1 k/uL (1.3-7.7); Neutrophils % (A) 62 %; Platelet Count 221 k/uL (150-450); RDW 13.3 % (11.5-15.5); WBC 6.5 k/uL (3.8-10.6)
[2019-01-21 22:28] LABS: INR 0.9 (<1.2); Partial Thromboplastin Time 27.9 sec (22.0-30.0); Prothrombin Time 10.2 sec (9.0-12.0)
--- NOTE | 2019-01-21 22:45 | CT ---
EXAM: CT Head Without Intravenous Contrast CLINICAL HISTORY: ITS.REASON CT Reason: altered mental status TECHNIQUE: Axial computed tomography images of the head/brain without intravenous contrast. CTDI is 49.1 mGy and DLP is 1095 mGy-cm. This CT exam was performed using one or more of the following dose reduction techniques: automated exposure control, adjustment of the mA and/or kV according to patient size, and/or use of iterative reconstruction technique. COMPARISON: CT head 01/19/2019. MRI brain 11/18/2018. FINDINGS: Brain: Small right anterior parafalcine hyperdense apparent dural based mass measuring 5 x 6 x 6 mm (axial image 20, coronal image 17) appears unchanged dating back to 11/18/2018, most likely representing a small meningioma. Global parenchymal volume loss with extensive chronic microvascular ischemic changes. No hemorrhage. Ventricles: Unremarkable. No ventriculomegaly. Bones/joints: Unremarkable. No acute fracture. Soft tissues: Unremarkable. Sinuses: Unremarkable as visualized. No acute sinusitis. Mastoid air cells: Unremarkable as visualized. No mastoid effusion. Orbits: Bilateral lens replacement. IMPRESSION: 1. No intracranial hemorrhage or other acute intracranial abnormality. 2. Small right anterior parafalcine hyperdense apparent dural based mass measuring 5 x 6 x 6 mm (axial image 20, coronal image 17) appears unchanged dating back to 11/18/2018, most likely representing a small meningioma. 3. Global parenchymal volume loss with extensive chronic microvascular ischemic changes.
--- NOTE | 2019-01-21 23:05 | ED ---
Psych HPI - General Chief Complaint: Psychiatric Symptoms Stated Complaint: Confusion Time Seen by Provider: 01/21/19 21:12 Source: patient, EMS, Caregiver Mode of arrival: EMS Limitations: altered mental status (Underlying dementia) - History of Present Illness Initial Comments: This patient is an 78-year-old woman who is resident of a long-term [facility] she is brought here to have evaluation after she has been having outbursts at the staff there. The patient has reportedly been uncooperative with her treatment regimen and then had been threatening staff. When I interview the patient, she states she is here because she "is making trouble." But she is not able to further elaborate on that. The patient does appear to have some underlying dementia and this is noted in her medical record. Patient is oriented only to person. She has not otherwise providing any additional history. Other review of systems she is denying any complaints. She has no dyspnea, cough, pain, or any bowel or bladder related complaints. MD Complaint: other Onset/Timin -: days(s) Associated Psychiatric Symptoms: none History of same: Yes Quality: getting worse Improves With: none Worsens With: none Associated Symptoms: denies other symptoms - Related Data Home Medications Medication Instructions Recorded Confirmed Cholecalciferol (Vitamin D3) 2,000 unit PO DAILY@0800 10/02/18 01/21/19 [Vitamin D3] Coconut Oil 1000mg 1,000 mg PO DAILY@1400 10/02/18 01/21/19 Escitalopram [Lexapro] 10 mg PO DAILY@0800 10/02/18 01/21/19 Ferrous Sulfate [Iron (65 MG 325 mg PO DAILY@0800 10/02/18 01/21/19 Elemental)] Losartan [Cozaar] 50 mg PO DAILY@0800 10/02/18 01/21/19 Melatonin 5 mg PO HS@199910/02/18 01/21/19 Acetaminophen [Tylenol Arthritis] 1,300 mg PO Q6H PRN 11/08/18 01/21/19 LORazepam [Ativan] 0.5 mg PO BID PRN 12/08/18 01/21/19 LORazepam [Ativan] 0.5 mg PO BID@0800,1700 12/08/18 01/21/19 QUEtiapine FUMARATE [SEROquel] 25 mg PO BID@0800,199912/08/18 01/21/19 Naproxen 500 mg PO BID PRN 01/21/19 01/21/19 busPIRone HCl [Buspar] 10 mg PO Q8H PRN 01/21/19 01/21/19 Allergies Allergy/AdvReac Type Severity Reaction Status Date / Time No Known Allergies Allergy Verified 01/21/19 21:44 Review of Systems ROS Statement: Those systems with pertinent positive or pertinent negative responses have been documented in the HPI. ROS Other: All systems not noted in ROS Statement are negative. Limitations: ROS unobtainable due to patients medical condition (Underlying dementia) Past Medical History Past Medical History: Dementia, Syncope Additional Past Medical History / Comment(s): dementia; A\\O X1 (SELF). History of Any Multi-Drug Resistant Organisms: None Reported Past Surgical History: Unable to Obtain Past Psychological History: No Psychological Hx Reported Smoking Status: Never smoker Past Alcohol Use History: None Reported Past Drug Use History: None Reported General Exam Limitations: altered mental status General appearance: alert, in no apparent distress Head exam: Present: atraumatic, normocephalic Eye exam: Present: normal appearance, PERRL, EOMI. Absent: scleral icterus, conjunctival injection ENT exam: Present: normal oropharynx Neck exam: Present: normal inspection, full ROM. Absent: tenderness, meningismus Respiratory exam: Present: normal lung sounds bilaterally. Absent: respiratory distress, wheezes, rales, rhonchi, stridor Cardiovascular Exam: Present: regular rate, normal rhythm, normal heart sounds GI/Abdominal exam: Present: soft. Absent: distended, tenderness, guarding, rebound, mass Extremities exam: Present: tenderness (Right wrist), normal capillary refill. Absent: pedal edema, calf tenderness Neurological exam: Present: alert. Absent: oriented X3 (Rented only to person), motor sensory deficit Skin exam: Present: warm, dry, intact, normal color, other (Subacute contusion to the left orbital area. Contusion to right wrist.) Course Vital Signs 01/21/19 01/21/19 01/21/19 21:14 22:00 23:21 Temperature 98.6 F 98 F Pulse Rate 86 72 68 Respiratory 20 20 18 Rate Blood Pressure 154/60 146/65 164/59 O2 Sat by Pulse 99 99 98 Oximetry 01/22/19 00:35 Temperature 98 F Pulse Rate 68 Respiratory 18 Rate Blood Pressure 164/59 O2 Sat by Pulse 98 Oximetry Medical Decision Making - Lab Data Result diagrams: 01/21/19 22:00 01/21/19 22:00 Lab Results 01/21/19 01/21/19 01/21/19 Range/Units 22:00 22:00 22:00 WBC 6.5 (3.8-10.6) k/uL RBC 3.50 L (3.80-5.40) m/uL Hgb 10.0 L D (11.4-16.0) gm/dL Hct 31.5 L (34.0-46.0) % MCV 90.0 (80.0-100.0) fL MCH 28.6 (25.0-35.0) pg MCHC 31.7 (31.0-37.0) g/dL RDW 13.3 (11.5-15.5) % Plt Count 221 (150-450) k/uL Neutrophils % 62 % Lymphocytes % 23 % Monocytes % 10 % Eosinophils % 2 % Basophils % 0 % Neutrophils # 4.1 (1.3-7.7) k/uL Lymphocytes # 1.5 (1.0-4.8) k/uL Monocytes # 0.7 (0-1.0) k/uL Eosinophils # 0.2 (0-0.7) k/uL Basophils # 0.0 (0-0.2) k/uL PT 10.2 (9.0-12.0) sec INR 0.9 (<1.2) APTT 27.9 (22.0-30.0) sec Sodium 140 (137-145) mmol/L Potassium 4.3 (3.5-5.1) mmol/L Chloride 107 (98-107) mmol/L Carbon Dioxide 27 (22-30) mmol/L Anion Gap 6 mmol/L BUN 24 H (7-17) mg/dL Creatinine 1.15 H (0.52-1.04) mg/dL Est GFR (CKD-EPI)AfAm 52 (>60 ml/min/1.73 sqM) Est GFR (CKD-EPI)NonAf 45 (>60 ml/min/1.73 sqM) Glucose 98 (74-99) mg/dL POC Glucose (mg/dL) (75-99) mg/dL POC Glu Gis Mapping Technician ID Calcium 9.4 (8.4-10.2) mg/dL Total Bilirubin 0.4 (0.2-1.3) mg/dL AST 27 (14-36) U/L ALT 19 (9-52) U/L Alkaline Phosphatase 81 (38-126) U/L Troponin I (0.000-0.034) ng/mL Total Protein 6.5 (6.3-8.2) g/dL Albumin 3.8 (3.5-5.0) g/dL Urine Color Urine Appearance (Clear) Urine pH (5.0-8.0) Ur Specific [place] (1.001-1.035) Urine Protein (Negative) Urine Glucose (UA) (Negative) Urine Ketones (Negative) Urine Blood (Negative) Urine Nitrite (Negative) Urine Bilirubin (Negative) Urine Urobilinogen (<2.0) mg/dL Ur Leukocyte Esterase (Negative) Urine RBC (0-5) /hpf Urine WBC (0-5) /hpf Ur Squamous Epith Cells (0-4) /hpf Hyaline Casts (0-2) /lpf Urine Opiates Screen (NotDetected) Ur Oxycodone Screen (NotDetected) Urine Methadone Screen (NotDetected) Ur Propoxyphene Screen (NotDetected) Ur Barbiturates Screen (NotDetected) U Tricyclic Antidepress (NotDetected) Ur Phencyclidine Scrn (NotDetected) Ur Amphetamines Screen (NotDetected) U Methamphetamines Scrn (NotDetected) U Benzodiazepines Scrn (NotDetected) Urine Cocaine Screen (NotDetected) U Marijuana (THC) Screen (NotDetected) 01/21/19 01/21/19 01/22/19 Range/Units 22:00 22:07 00:03 WBC (3.8-10.6) k/uL RBC (3.80-5.40) m/uL Hgb (11.4-16.0) gm/dL Hct (34.0-46.0) % MCV (80.0-100.0) fL MCH (25.0-35.0) pg MCHC (31.0-37.0) g/dL RDW (11.5-15.5) % Plt Count (150-450) k/uL Neutrophils % % Lymphocytes % % Monocytes % % Eosinophils % % Basophils % % Neutrophils # (1.3-7.7) k/uL Lymphocytes # (1.0-4.8) k/uL Monocytes # (0-1.0) k/uL Eosinophils # (0-0.7) k/uL Basophils # (0-0.2) k/uL PT (9.0-12.0) sec INR (<1.2) APTT (22.0-30.0) sec Sodium (137-145) mmol/L Potassium (3.5-5.1) mmol/L Chloride (98-107) mmol/L Carbon Dioxide (22-30) mmol/L Anion Gap mmol/L BUN (7-17) mg/dL Creatinine (0.52-1.04) mg/dL Est GFR (CKD-EPI)AfAm (>60 ml/min/1.73 sqM) Est GFR (CKD-EPI)NonAf (>60 ml/min/1.73 sqM) Glucose (74-99) mg/dL POC Glucose (mg/dL) 103 H (75-99) mg/dL POC Glu Gis Mapping Technician ID Calcium (8.4-10.2) mg/dL Total Bilirubin (0.2-1.3) mg/dL AST (14-36) U/L ALT (9-52) U/L Alkaline Phosphatase (38-126) U/L Troponin I <0.012 (0.000-0.034) ng/mL Total Protein (6.3-8.2) g/dL Albumin (3.5-5.0) g/dL Urine Color Yellow Urine Appearance Clear (Clear) Urine pH 6.5 (5.0-8.0) Ur Specific [place] 1.018 (1.001-1.035) Urine Protein Negative (Negative) Urine Glucose (UA) Negative (Negative) Urine Ketones Negative (Negative) Urine Blood Trace H (Negative) Urine Nitrite Negative (Negative) Urine Bilirubin Negative (Negative) Urine Urobilinogen <2.0 (<2.0) mg/dL Ur Leukocyte Esterase Large H (Negative) Urine RBC 8 H (0-5) /hpf Urine WBC 5 (0-5) /hpf Ur Squamous Epith Cells 3 (0-4) /hpf Hyaline Casts 4 H (0-2) /lpf Urine Opiates Screen Not Detected (NotDetected) Ur Oxycodone Screen Not Detected (NotDetected) Urine Methadone Screen Not Detected (NotDetected) Ur Propoxyphene Screen Not Detected (NotDetected) Ur Barbiturates Screen Not Detected (NotDetected) U Tricyclic Antidepress Not Detected (NotDetected) Ur Phencyclidine Scrn Not Detected (NotDetected) Ur Amphetamines Screen Not Detected (NotDetected) U Methamphetamines Scrn Not Detected (NotDetected) U Benzodiazepines Scrn Detected H (NotDetected) Urine Cocaine Screen Not Detected (NotDetected) U Marijuana (THC) Screen Not Detected (NotDetected) - EKG Data -: EKG Interpreted by Hi EKG shows normal: sinus rhythm (With occasional PAC.), intervals (Normal), QRS complexes (Normal), ST-T waves (Normal) Rate: normal (866 bpm.) Interpretation: nonspecific ST-T wave changes Disposition Clinical Impression: Dementia, Agitation Disposition: HOME SELF-CARE Condition: Fair Instructions (If sedation given, give patient instructions): Dementia (ED) Is patient prescribed a controlled substance at d/c from ED?: No Referrals: Joseph Barrera MD [Primary Care Provider] - 1-2 days
[2019-01-21 23:23] VITALS: RESP 18; TEMP 98
[2019-01-22 00:53] LABS: Appearance,Urine Clear (Clear); Bilirubin,Urine Negative (Negative); Blood,Urine Trace (Negative); Color,Urine Yellow; Glucose,Urine (UA) Negative (Negative); Hyaline Casts,Urine 4 /lpf (0-2); Ketones,Urine Negative (Negative); Leukocyte Esterase,Urine Large (Negative); Nitrite,Urine Negative (Negative); PH, Urine 6.5 (5.0-8.0); Protein,Urine Negative (Negative); RBC,Urine 8 /hpf (0-5); Specific Gravity,Urine 1.018 (1.001-1.035); Squamous Epithelial Cell,Urine 3 /hpf (0-4); Urobilinogen,Urine <2.0 mg/dL (<2.0); WBC,Urine 5 /hpf (0-5)
[2019-01-22 00:59] LABS: Amphetamine Screen,Urine Not Detected (NotDetected); Barbiturate Screen,Urine Not Detected (NotDetected); Benzodiazepines Screen,Urine Detected (NotDetected); Cocaine Screen,Urine Not Detected (NotDetected); Methadone Screen, Urine Not Detected (NotDetected); Opiate Screen,Urine Not Detected (NotDetected); Oxycodone Screen, Urine Not Detected (NotDetected); Phencyclidine Screen,Urine Not Detected (NotDetected); Tricyclic Antidepressant,Urine Not Detected (NotDetected); Urn Cannabinoid Scrn Not Detected (NotDetected)
[2019-01-22] MEDS: LORazepam 1 MG TAB PO STA ×2 (02:52→03:05)
[2019-01-22] MEDS ORDERED: LORazepam 2 MG/ML INJ IV STA (02:59)
[2019-01-22] MEDS ORDERED: HALOPERIDOL LACTATE 5 MG/ML 1 ML VIAL IM STA (03:34)
[2019-01-22 04:09] VITALS: BP 143/74; PULSE 69
== END 2019-01-22 04:34 | disposition home or self-care (01) ==
LOC: EC 20:53
DX: S60.211A Contusion of right wrist, initial encounter (principal); S05.12XA Contusion of eyeball and orbital tissues, left eye, initial encounter; F03.90 Unspecified dementia, unspecified severity, without behavioral disturbance, psychotic disturbance, mood disturbance, and anxiety; R45.1 Restlessness and agitation; Z53.8 Procedure and treatment not carried out for other reasons; Z79.899 Other long term (current) drug therapy
CPT/HCPCS: 36415; 70450; 71045; 80053; 80306; 81001; 82075; 84484; 85025; 85610; 85730; 93005; 96372; 96374; 99285